=== PATIENT | male | born 1980 | race Caucasian/White ===

== ENCOUNTER 2016-12-01 22:28 | Emergency (ER) | payer OTHER ==
[2016-12-01 22:48] VITALS: RESP 18
[2016-12-01] MEDS ORDERED: RX INFO: IV CONTRAST WAS GIVEN 1 EACH MISC MISCELLANE PRN (23:24)
[2016-12-01] MEDS ORDERED: HYDROmorphone 1 MG/ML 1 ML SYRINGE IVP STA (23:24)
[2016-12-01] MEDS ORDERED: SODIUM CHLORIDE 0.9% 1,000 ML IV STA (23:24)
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
[2016-12-02 00:36] LABS: Basophils % (A) 0 %; CH 33.1; CHCM 34.2; Eosinophils # (A) 0.2 k/uL (0-0.7); Eosinophils % (A) 2 %; HCT 43.8 % (39.0-53.0); HDW 2.07; HGB 15.7 gm/dL (13.0-17.5); Luc # (Auto) 0.14; Luc % (Auto) 1; Lymphocytes # (A) 3.3 k/uL (1.0-4.8); Lymphocytes % (A) 28 %; MCH 34.9 pg (25.0-35.0); MCHC 35.9 g/dL (31.0-37.0); MCV 97.1 fL (80.0-100.0); Mean Platelet Volume 8.5; Monocytes # (A) 0.5 k/uL (0-1.0); Monocytes % (A) 5 %; Neutrophils # (A) 7.3 k/uL (1.3-7.7); Neutrophils % (A) 64 %; RBC 4.51 m/uL (4.30-5.90); RDW 12.9 % (11.5-15.5); WBC 11.5 k/uL (3.8-10.6); WBC (Perox) 12.03
[2016-12-02 00:47] LABS: ALT 41 U/L (21-72); AST 45 U/L (17-59); Alkaline Phosphatase 81 U/L (38-126); Anion Gap 11 mmol/L; Blood Urea Nitrogen 18 mg/dL (9-20); Calcium 9.5 mg/dL (8.4-10.2); Carbon Dioxide 26 mmol/L (22-30); Chloride 102 mmol/L (98-107); Glucose 140 mg/dL (74-99); Non-African American GFR(MDRD) >60 (>60 ml/min/1.73 sqM); Potassium 4.1 mmol/L (3.5-5.1); Sodium 139 mmol/L (137-145); Total Bilirubin 0.7 mg/dL (0.2-1.3)
[2016-12-02 01:15] LABS: Appearance,Urine Clear (Clear); Bilirubin,Urine Negative (Negative); Glucose,Urine (UA) Negative (Negative); Ketones,Urine 2+ (Negative); Leukocyte Esterase,Urine Negative (Negative); Mucus,Urine Occasional /hpf; Nitrite,Urine Negative (Negative); PH, Urine 5.5 (5.0-8.0); Particle Count 2853; Protein,Urine Trace (Negative); RBC,Urine 2 /hpf (0-5); Squamous Epithelial Cell,Urine <1 /hpf (0-4); UA Billing (MACRO vs. MICRO) MICRO; WBC,Urine 1 /hpf (0-5)
[2016-12-02 01:16] LABS: Specific Gravity,Urine >1.050 (1.001-1.035)
--- NOTE | 2016-12-02 01:34 | CT ---
EXAM: CT Head Without Intravenous Contrast CLINICAL HISTORY: Reason: Pain TECHNIQUE: Axial computed tomography images of the head/brain without intravenous contrast. CTDI is 57.40 mGy and DLP is 928.70 mGy-cm. This CT exam was performed using one or more of the following dose reduction techniques: automated exposure control, adjustment of the mA and/or kV according to patient size, and/or use of iterative reconstruction technique. COMPARISON: No relevant prior studies available. FINDINGS: Limitations: Note that the superiormost aspect of the vertex is excluded from the [id number]. Brain: Unremarkable. No hemorrhage. No significant white matter disease. No edema. Ventricles: Unremarkable. No ventriculomegaly. Bones/joints: Unremarkable. No acute fracture. Sinuses: Unremarkable as visualized. No acute sinusitis. Mastoid air cells: Unremarkable. No mastoid effusion. Orbits: Postsurgical changes noted involving the left globe. IMPRESSION: No acute intracranial abnormality is seen. EXAM: CT Cervical Spine Without Intravenous Contrast CLINICAL HISTORY: Reason: Pain TECHNIQUE: Axial computed tomography images of the cervical spine without intravenous contrast. CTDI is 14.10 mGy and DLP is 283.50 mGy-cm. This CT exam was performed using one or more of the following dose reduction techniques: automated exposure control, adjustment of the mA and/or kV according to patient size, and/or use of iterative reconstruction technique. COMPARISON: No relevant prior studies available. FINDINGS: Vertebrae: Vertebral body heights and alignment are maintained without acute fracture. There are mild degenerative changes, including prominent anterior osteophyte formation at C5-6, mild reduction of the foraminal volumes at C3-4 and C5-6 along with slight reduction of the central canal volume from C3-4 through C5-6. There is reversal of the normal cervical lordosis. Discs/spinal canal/neural foramina: See above. Soft tissues: Unremarkable. Lung apices: Minimal linear scarring. IMPRESSION: 1. No acute osseous abnormality is seen. 2. There is nonspecific reversal of the normal cervical lordosis. 3. Clinical clearance of the cervical spine is still recommended. 4. Mild cervical spondylosis.
--- NOTE | 2016-12-02 01:43 | CT ---
EXAM: CT Chest With Intravenous Contrast CLINICAL HISTORY: Reason: Pain TECHNIQUE: Axial computed tomography images of the chest with intravenous contrast. CTDI is 5.90 mGy and DLP is 427.20 mGy-cm for combined chest/abdomen/pelvis CT. This CT exam was performed using one or more of the following dose reduction techniques: automated exposure control, adjustment of the mA and/or kV according to patient size, and/or use of iterative reconstruction technique. COMPARISON: No relevant prior studies available. FINDINGS: Lungs: Diffuse emphysematous changes, with linear scarring at the apices. No superimposed infiltrate. Pleural space: Unremarkable. No pneumothorax. No significant effusion. Heart: Unremarkable. No cardiomegaly. No significant pericardial effusion. Bones/joints: Smoothly marginated anterior chest wall deformity involving bilateral ribs which may be congenital, or due to prior surgery or remote trauma. No acute displaced fracture is seen. Soft tissues: Mild bilateral gynecomastia. Vasculature: Unremarkable. No thoracic aortic aneurysm. Lymph nodes: Unremarkable. No enlarged lymph nodes. IMPRESSION: 1. No acute intrathoracic sequela from trauma is seen. 2. Advanced emphysematous changes. EXAM: CT Abdomen and Pelvis With Intravenous Contrast CLINICAL HISTORY: Reason: Pain TECHNIQUE: Axial computed tomography images of the abdomen and pelvis with intravenous contrast. CTDI is 5.90 mGy and DLP is 427.20 mGy-cm for combined chest/abdomen/pelvis CT. This CT exam was performed using one or more of the following dose reduction techniques: automated exposure control, adjustment of the mA and/or kV according to patient size, and/or use of iterative reconstruction technique. COMPARISON: No relevant prior studies available. FINDINGS: Lower thorax: No acute findings. ABDOMEN: Liver: Geographic focal fat adjacent to the falciform ligament. Gallbladder and bile ducts: Unremarkable. No calcified stones. No ductal dilation. Pancreas: Uniform without discrete mass. While the pancreatic duct is visualized, it measures under 3 mm in diameter, within normal limits Spleen: Unremarkable. No splenomegaly. Adrenals: Unremarkable. No mass. Kidneys and ureters: Unremarkable. No solid mass. No hydronephrosis. Stomach and bowel: Unremarkable. No obstruction. Appendix: No findings to suggest acute appendicitis. PELVIS: Bladder: Unremarkable. Reproductive: Unremarkable as visualized. ABDOMEN and PELVIS: Intraperitoneal space: No free air. No significant fluid collection. Bones/joints: No acute fracture. Soft tissues: Unremarkable. Vasculature: No abdominal aortic aneurysm. Lymph nodes: No enlarged lymph nodes. IMPRESSION: No definite acute intra-abdominal or pelvic sequela from trauma is seen, as above.
[2016-12-02] MEDS ORDERED: HYDROmorphone 1 MG/ML 1 ML SYRINGE IVP STA (01:55)
[2016-12-02 02:00] VITALS: BP 123/75; PULSE 74; TEMP 97.5
== END 2016-12-02 02:00 | disposition home or self-care (01) ==
LOC: EC 22:28
DX: S39.012A Strain of muscle, fascia and tendon of lower back, initial encounter (principal); S20.211A Contusion of right front wall of thorax, initial encounter; S00.81XA Abrasion of other part of head, initial encounter; Z88.0 Allergy status to penicillin; Z88.8 Allergy status to other drugs, medicaments and biological substances; Z91.011 Allergy to milk products; Z87.891 Personal history of nicotine dependence; Y03.0XXA Assault by being hit or run over by motor vehicle, initial encounter
CPT/HCPCS: 99284; 96374; 96361 ×2; 36415; 80053; 85025; 81001; 72125; 70450; 71260; 74177; J1170; Q9967

== ENCOUNTER 2017-06-24 17:31 | Emergency (ER) | payer OTHER ==
[2017-06-24 17:41] VITALS: BP 165/85; PULSE 108; RESP 20; TEMP 98.1
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
[2017-06-24 20:29] LABS: Amphetamine Screen,Urine Not Detected (NotDetected); Barbiturate Screen,Urine Not Detected (NotDetected); Benzodiazepines Screen,Urine Not Detected (NotDetected); Cocaine Screen,Urine Not Detected (NotDetected); Methadone Screen, Urine Not Detected (NotDetected); Opiate Screen,Urine Not Detected (NotDetected); Oxycodone Screen, Urine Not Detected (NotDetected); Phencyclidine Screen,Urine Not Detected (NotDetected); Tricyclic Antidepressant,Urine Not Detected (NotDetected); Urn Cannabinoid Scrn Detected (NotDetected)
== END 2017-06-24 21:00 | disposition home or self-care (01) ==
LOC: EC 17:31
DX: R45.1 Restlessness and agitation (principal); F20.9 Schizophrenia, unspecified; Z87.891 Personal history of nicotine dependence; Z88.0 Allergy status to penicillin; Z88.8 Allergy status to other drugs, medicaments and biological substances; Z91.011 Allergy to milk products
CPT/HCPCS: 80306; 99284

== ENCOUNTER 2017-09-28 05:35 | Emergency (ER) | payer OTHER ==
[2017-09-28] MEDS ORDERED: PROPARACAINE 0.5% OPHTH DROPS 15 ML BTL ONE (06:21)
[2017-09-28] MEDS ORDERED: PROPARACAINE 0.5% OPHTH DROPS 15 ML BTL LEFT EYE STA (06:21)
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
--- NOTE | 2017-09-28 07:24 | CT ---
EXAM: CT Orbits Without Intravenous Contrast CLINICAL HISTORY: ITS.REASON CT Reason: Pain TECHNIQUE: Axial computed tomography images of the orbits without intravenous contrast. CTDI is 30.6 mGy and DLP is 336.8 mGy-cm. This CT exam was performed using one or more of the following dose reduction techniques: automated exposure control, adjustment of the mA and/or kV according to patient size, and/or use of iterative reconstruction technique. COMPARISON: Prior head CT from 12/02/16 FINDINGS: Orbits: Hyperdensity in the anterior aspect of the left globe likely postsurgical change. Otherwise the globes appear symmetric. Mild asymmetric thickening/low-density surrounding the right optic nerve, nonspecific. This may reflect asymmetric prominence of the CSF surrounding the right optic nerve versus enlargement of the optic nerve. This appears relatively unchanged compared to prior head CT of 12/02/16 and may represent chronic finding Sinuses: Mild mucosal thickening in the ethmoid sinuses, right worse than left. Sphenoid sinuses are clear. Frontal sinuses are clear. Near complete opacification of the right maxillary sinus. Minimal mucosal thickening in the left maxillary sinus. Barbara bullosa in the left. Bones/joints: No acute fracture. Soft tissues: Unremarkable. Nasopharynx: Nasal septal deviation to the left anteriorly. Other findings: Mild hypertrophy of the right inferior turbinate. IMPRESSION: Finding as described likely postsurgical change in the left globe. Asymmetry/low-density surrounding the right optic nerve as described. This appears grossly unchanged compared to prior head CT of 12/02/16 and may be clinically insignificant. Follow-up MR of the orbits for better visualization as indicated Right maxillary sinusitis [employer] 09/28/17 07:36 Verify Receipt Verified receipt with [facility] in ER for Dr. Minaya on 09/28 07:35 (-04:00)
[2017-09-28 07:44] VITALS: BP 137/77; PULSE 82; RESP 18; TEMP 98.2
== END 2017-09-28 08:43 | disposition home or self-care (01) ==
LOC: EC 05:35
DX: H11.32 Conjunctival hemorrhage, left eye (principal); S05.02XA Injury of conjunctiva and corneal abrasion without foreign body, left eye, initial encounter; Z95.1 Presence of aortocoronary bypass graft; Z87.891 Personal history of nicotine dependence; Z88.0 Allergy status to penicillin; Z88.8 Allergy status to other drugs, medicaments and biological substances; Z91.011 Allergy to milk products; W26.8XXA Contact with other sharp object(s), not elsewhere classified, initial encounter
CPT/HCPCS: 70480; 99283

== ENCOUNTER 2017-10-03 19:31 | Emergency (ER) | payer OTHER ==
[2017-10-03] MEDS ORDERED: IPRATROPIUM-ALBUTEROL 3 ML NEB INHALATION STA ×2 (20:27→21:25)
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
--- NOTE | 2017-10-03 21:12 | XR ---
EXAMINATION TYPE: XR chest 2V DATE OF EXAM: 10/03/2017 COMPARISON: 05/03/2017 HISTORY: Cough TECHNIQUE: Frontal and lateral views of the chest are obtained. FINDINGS: There is some reticular density in the periphery of the right lung with relative lucency. This could be combined pulmonary scarring and emphysema. There is no sign of a pneumothorax. There is no pleural effusion. Heart size is normal. Mediastinum is normal. There is mild pectus excavatum divya st deformity. IMPRESSION: There are probably some fibrotic changes and emphysema in the periphery of the right kristi g. No change compared to old exam. No acute lung disease.
[2017-10-03] MEDS ORDERED: DEXAMETHASONE SOD PHOSPHATE 10 MG/ML 1 ML VIAL IM STA (21:25)
[2017-10-03 21:39] VITALS: BP 136/68; RESP 18; TEMP 98.2
[2017-10-03 21:42] VITALS: PULSE 92
== END 2017-10-03 21:51 | disposition home or self-care (01) ==
LOC: EC 19:31
DX: J20.9 Acute bronchitis, unspecified (principal); Z87.891 Personal history of nicotine dependence; Z88.0 Allergy status to penicillin; Z88.8 Allergy status to other drugs, medicaments and biological substances; Z91.011 Allergy to milk products; Z95.1 Presence of aortocoronary bypass graft
CPT/HCPCS: 94640 ×2; 71046; 99283; 96372; J1100

== ENCOUNTER 2017-10-14 01:30 | Emergency (ER) | payer OTHER ==
--- NOTE | 2017-10-14 02:44 | XR ---
EXAMINATION TYPE: XR chest 2V DATE OF EXAM: 10/14/2017 COMPARISON: 10/03/2017 HISTORY: Sore throat TECHNIQUE: Frontal and lateral views of the chest are obtained. FINDINGS: Heart and mediastinum are normal. There is pulmonary hyperinflation and flattening of the diaphragm. There appears to be emphysematous changes in the right lung compared to the left. There is no pleural effusion. Bony thorax is intact. There is mild pectus excavatum chest deformity. IMPRESSION: Possible COPD. Possible right side pulmonary emphysema. No acute lung disease. No change compared to old exam.
[2017-10-14] MEDS ORDERED: AZITHROMYCIN 500 MG TAB PO STA (02:59)
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
[2017-10-14 03:18] VITALS: BP 118/62; PULSE 62; RESP 18; TEMP 97.9
== END 2017-10-14 03:18 | disposition home or self-care (01) ==
LOC: EC 01:30
DX: J44.9 Chronic obstructive pulmonary disease, unspecified (principal); Z87.891 Personal history of nicotine dependence; Z88.0 Allergy status to penicillin; Z91.011 Allergy to milk products; Z88.8 Allergy status to other drugs, medicaments and biological substances; Z95.1 Presence of aortocoronary bypass graft
CPT/HCPCS: 71046; 99283

== ENCOUNTER 2017-10-17 22:50 | Emergency (ER) | payer OTHER ==
[2017-10-17 23:06] VITALS: RESP 18; TEMP 97.9
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
[2017-10-18 00:29] LABS: Amphetamine Screen,Urine Not Detected (NotDetected); Barbiturate Screen,Urine Not Detected (NotDetected); Benzodiazepines Screen,Urine Not Detected (NotDetected); Cocaine Screen,Urine Not Detected (NotDetected); Methadone Screen, Urine Not Detected (NotDetected); Opiate Screen,Urine Not Detected (NotDetected); Oxycodone Screen, Urine Not Detected (NotDetected); Phencyclidine Screen,Urine Not Detected (NotDetected); Tricyclic Antidepressant,Urine Not Detected (NotDetected); Urn Cannabinoid Scrn Detected (NotDetected)
[2017-10-18 02:18] VITALS: BP 118/73; PULSE 70
== END 2017-10-18 02:16 | disposition home or self-care (01) ==
LOC: EC 22:50
DX: F41.9 Anxiety disorder, unspecified (principal); F60.9 Personality disorder, unspecified; F30.8 Other manic episodes; Z59.0 Homelessness; Q24.8 Other specified congenital malformations of heart; J44.9 Chronic obstructive pulmonary disease, unspecified; Z87.891 Personal history of nicotine dependence; Z88.0 Allergy status to penicillin; Z88.8 Allergy status to other drugs, medicaments and biological substances; Z91.011 Allergy to milk products; Z87.01 Personal history of pneumonia (recurrent); Z95.1 Presence of aortocoronary bypass graft
CPT/HCPCS: 80306; 82075; 99284

== ENCOUNTER 2017-10-19 17:44 | Inpatient (IN) | payer MEDICAID, OTHER ==
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
[2017-10-19 18:58] LABS: Amphetamine Screen,Urine Not Detected (NotDetected); Barbiturate Screen,Urine Not Detected (NotDetected); Benzodiazepines Screen,Urine Not Detected (NotDetected); Cocaine Screen,Urine Not Detected (NotDetected); Methadone Screen, Urine Not Detected (NotDetected); Opiate Screen,Urine Not Detected (NotDetected); Oxycodone Screen, Urine Not Detected (NotDetected); Phencyclidine Screen,Urine Not Detected (NotDetected); Tricyclic Antidepressant,Urine Not Detected (NotDetected); Urn Cannabinoid Scrn Detected (NotDetected)
[2017-10-19] MEDS ORDERED: MAGNESIUM HYDROXIDE 2,400 MG/10 ML CUP PO PRN (19:31)
[2017-10-19] MEDS ORDERED: MAG HYDROX/AL HYDROX/SIMETH 30 ML CUP PO PRN (19:31)
[2017-10-19] MEDS ORDERED: LORazepam 1 MG TAB PO PRN (19:31)
[2017-10-19] MEDS ORDERED: ZIPRASIDONE 20 MG VIAL IM PRN (19:31)
[2017-10-19] MEDS ORDERED: ACETAMINOPHEN TAB 325 MG TAB PO PRN (19:31)
[2017-10-19] MEDS ORDERED: LORazepam 2 MG/ML INJ IM PRN (19:32)
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
[2017-10-19 22:12] VITALS: BMI 17.4
[2017-10-19] MEDS: CLINDAMYCIN 150 MG CAP PO SCH (22:39)
[2017-10-20] MEDS: CLINDAMYCIN 150 MG CAP PO SCH ×3 (09:12→21:58)
[2017-10-20 09:32] LABS: Basophils % (A) 0 %; Eosinophils # (A) 0.3 k/uL (0-0.7); Eosinophils % (A) 5 %; HCT 45.4 % (39.0-53.0); HGB 15.3 gm/dL (13.0-17.5); Lymphocytes # (A) 1.8 k/uL (1.0-4.8); Lymphocytes % (A) 30 %; MCHC 33.8 g/dL (31.0-37.0); MCV 94.8 fL (80.0-100.0); Mean Platelet Volume 7.6; Monocytes # (A) 0.4 k/uL (0-1.0); Monocytes % (A) 6 %; Neutrophils # (A) 3.3 k/uL (1.3-7.7); Neutrophils % (A) 57 %; Platelet Count 226 k/uL (150-450); RBC 4.78 m/uL (4.30-5.90); RDW 12.9 % (11.5-15.5); WBC 5.9 k/uL (3.8-10.6)
[2017-10-20 09:52] LABS: ALT 40 U/L (21-72); AST 35 U/L (17-59); Alkaline Phosphatase 72 U/L (38-126); Anion Gap 12 mmol/L; Blood Urea Nitrogen 21 mg/dL (9-20); Calcium 9.7 mg/dL (8.4-10.2); Carbon Dioxide 29 mmol/L (22-30); Chloride 103 mmol/L (98-107); Glucose 137 mg/dL (74-99); Potassium 4.7 mmol/L (3.5-5.1); Sodium 144 mmol/L (137-145); Total Bilirubin 0.7 mg/dL (0.2-1.3); Total Protein 6.3 g/dL (6.3-8.2)
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
[2017-10-20] MEDS: ARIPiprazole 5 MG TAB PO SCH (10:33)
[2017-10-21 06:44] VITALS: RESP 16
[2017-10-21] MEDS: ARIPiprazole 5 MG TAB PO SCH (08:20)
[2017-10-21] MEDS: CLINDAMYCIN 150 MG CAP PO SCH ×3 (08:20→22:00)
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
[2017-10-22 07:00] VITALS: TEMP 97.9
[2017-10-22] MEDS: CLINDAMYCIN 150 MG CAP PO SCH ×3 (09:26→21:28)
[2017-10-22] MEDS: ARIPiprazole 5 MG TAB PO SCH (09:27)
--- NOTE | 2017-10-22 15:26 | P.PN ---
Progress Note - Text Progress Note Date: 10/22/17 Interval history: Patient is seen again in cross coverage today. He relates today that he did sign the notice of wanting to leave the hospital. He reports that he is eating well and sleeping well. He relates he did take the Abilify the first 2 doses but did not take the dose today. Mental status exam: He is alert and cooperative with the interview. His speech is fluent, not rapid or pressured. His mood he described as pretty good. He denies any thoughts of harm to self or others. He denies any hallucinations. He does not show any significant degree of agitation. Plan: We'll continue current treatment regimen. We'll continue to monitor his status, monitor for any medication side effects.
[2017-10-23 07:16] VITALS: BP 128/58; PULSE 86
[2017-10-23] MEDS: ARIPiprazole 5 MG TAB PO SCH (08:27)
[2017-10-23] MEDS: CLINDAMYCIN 150 MG CAP PO SCH (08:27)
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
== END 2017-10-23 12:15 | disposition left against medical advice (07) | DRG 885 ==
LOC: EC 17:44 → 3MHU 19:24
PROVIDERS: ADMIT Psychiatry & Neurology Psychiatry; ATTEND Psychiatry & Neurology Psychiatry
DX: F22 Delusional disorders (principal); F12.90 Cannabis use, unspecified, uncomplicated; F17.200 Nicotine dependence, unspecified, uncomplicated; F41.9 Anxiety disorder, unspecified; F60.9 Personality disorder, unspecified; J44.9 Chronic obstructive pulmonary disease, unspecified; L08.9 Local infection of the skin and subcutaneous tissue, unspecified; Z59.0 Homelessness; Z79.899 Other long term (current) drug therapy; Z95.1 Presence of aortocoronary bypass graft; Z88.1 Allergy status to other antibiotic agents; Z91.011 Allergy to milk products; Z88.0 Allergy status to penicillin; Z91.048 Other nonmedicinal substance allergy status; R45.850 Homicidal ideations
CPT/HCPCS: 80053; 80306; 82075; 84443; 85025; 99285

== ENCOUNTER 2017-11-17 09:43 | Emergency (ER) | payer OTHER ==
[2017-11-17 09:53] VITALS: BP 126/76; PULSE 78; RESP 20; TEMP 98.6
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
== END 2017-11-17 10:53 | disposition home or self-care (01) ==
LOC: EC 09:43
DX: S00.83XA Contusion of other part of head, initial encounter (principal); H05.222 Edema of left orbit; F17.200 Nicotine dependence, unspecified, uncomplicated; Z88.0 Allergy status to penicillin; Z91.011 Allergy to milk products; Z88.8 Allergy status to other drugs, medicaments and biological substances; Z95.1 Presence of aortocoronary bypass graft; Y09 Assault by unspecified means; Y92.009 Unspecified place in unspecified non-institutional (private) residence as the place of occurrence of the external cause
CPT/HCPCS: 99283

== ENCOUNTER 2018-07-03 13:17 | Emergency (ER) | payer OTHER ==
[2018-07-03 13:34] VITALS: BP 109/74; PULSE 105; RESP 18; TEMP 98.2
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
--- NOTE | 2018-07-03 14:51 | XR ---
EXAMINATION TYPE: XR lumbosacral spine min 4V DATE OF EXAM: 07/03/2018 CLINICAL HISTORY: Left leg numbness for 3 weeks. TECHNIQUE: Frontal, lateral, and oblique images of the lumbar spine are obtained. COMPARISON: CT from December 02, 2016 FINDINGS: There are 5 lumbar type vertebral bodies redemonstrated. The lumbar spine redemonstrates satisfactory alignment without evidence of acute fracture or dislocation. Vertebral body heights and disk space heights are within normal limits. The oblique images appear within normal limits. The o verlying soft tissue appears unremarkable. IMPRESSION: Unremarkable study.
== END 2018-07-03 15:19 | disposition home or self-care (01) ==
LOC: EC 13:17
DX: M54.16 Radiculopathy, lumbar region (principal); G56.03 Carpal tunnel syndrome, bilateral upper limbs; Q24.8 Other specified congenital malformations of heart; F17.200 Nicotine dependence, unspecified, uncomplicated; Z88.0 Allergy status to penicillin; Z88.8 Allergy status to other drugs, medicaments and biological substances; Z91.011 Allergy to milk products; Z95.1 Presence of aortocoronary bypass graft; Z98.890 Other specified postprocedural states
CPT/HCPCS: 72110; 99284

== ENCOUNTER 2020-02-10 21:16 | Emergency (ER) | payer OTHER ==
[2020-02-10 21:24] VITALS: TEMP 99.2
[2020-02-10] MEDS ORDERED: methylPREDNISolone SOD SUCCI 125 MG/2 ML VIAL IV STA (21:54)
[2020-02-10] MEDS ORDERED: SODIUM CHLORIDE 0.9% 1,000 ML IV STA (21:54)
[2020-02-10] MEDS ORDERED: IPRATROPIUM 0.5 MG/2.5 ML NEBU INHALATION STA (21:54)
[2020-02-10] MEDS ORDERED: ALBUTEROL NEB (CONC) 2.5 MG/0.5 ML INHALATION STA (21:56)
[2020-02-10] MEDS ORDERED: ALBUTEROL NEBULIZED 2.5 MG/3 ML INHALATION STA (21:56)
[2020-02-10] MEDS ORDERED: ONDANSETRON 4 MG/2 ML VIAL IVP STA (21:57)
[2020-02-10] MEDS ORDERED: MORPHINE SULFATE 4 MG/ML SYRINGE IVP STA (21:57)
[2020-02-10 22:18] LABS: Basophils % (A) 0 %; Eosinophils # (A) 0.1 k/uL (0-0.7); Eosinophils % (A) 1 %; HCT 43.5 % (39.0-53.0); HGB 14.3 gm/dL (13.0-17.5); Lymphocytes # (A) 2.8 k/uL (1.0-4.8); Lymphocytes % (A) 25 %; MCH 31.5 pg (25.0-35.0); MCV 95.3 fL (80.0-100.0); Mean Platelet Volume 9.2; Monocytes # (A) 0.7 k/uL (0-1.0); Monocytes % (A) 6 %; Neutrophils # (A) 7.4 k/uL (1.3-7.7); Neutrophils % (A) 66 %; Platelet Count 193 k/uL (150-450); RBC 4.56 m/uL (4.30-5.90); RDW 12.6 % (11.5-15.5); WBC 11.2 k/uL (3.8-10.6)
[2020-02-10 22:20] LABS: ALT 53 U/L (4-49); AST 158 U/L (17-59); African American GFR (CKD) >90 (>60 ml/min/1.73 sqM); Albumin 4.1 g/dL (3.5-5.0); Alkaline Phosphatase 74 U/L (38-126); Anion Gap 13 mmol/L; Blood Urea Nitrogen 22 mg/dL (9-20); Calcium 9.2 mg/dL (8.4-10.2); Carbon Dioxide 21 mmol/L (22-30); Chloride 101 mmol/L (98-107); Glucose 95 mg/dL (74-99); Non-African American GFR(CKD) >90 (>60 ml/min/1.73 sqM); Potassium 3.5 mmol/L (3.5-5.1); Sodium 135 mmol/L (137-145); Total Bilirubin 0.7 mg/dL (0.2-1.3); Total Protein 6.3 g/dL (6.3-8.2)
[2020-02-10 22:26] LABS: D-Dimer 0.24 mg/L FEU (<0.60); Partial Thromboplastin Time 23.9 sec (22.0-30.0); Prothrombin Time 10.5 sec (9.0-12.0)
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
--- NOTE | 2020-02-10 23:06 | XR ---
EXAMINATION TYPE: XR chest 2V DATE OF EXAM: 02/10/2020 COMPARISON: 10/14/2017 HISTORY: Inability breathing TECHNIQUE: 2 views FINDINGS: Heart and mediastinum are normal. Lungs are clear of infiltrate. There is a pectus excavatu m chest deformity. There is no pleural effusion. Thoracic spine is intact. IMPRESSION: No active cardiopulmonary disease. Normal heart. No change.
[2020-02-11 00:12] VITALS: BP 126/75; PULSE 80; RESP 18
== END 2020-02-11 00:35 | disposition home or self-care (01) ==
LOC: EC 21:16
DX: J44.1 Chronic obstructive pulmonary disease with (acute) exacerbation (principal); M79.671 Pain in right foot; M79.672 Pain in left foot; F17.200 Nicotine dependence, unspecified, uncomplicated; Z88.0 Allergy status to penicillin; Z91.011 Allergy to milk products; Z88.8 Allergy status to other drugs, medicaments and biological substances; Z95.1 Presence of aortocoronary bypass graft; Z59.0 Homelessness; Z20.828 Contact with and (suspected) exposure to other viral communicable diseases
CPT/HCPCS: 36415; 94640; 93005; 85379; 80053; 83605; 84484; 85025; 85610; 85730; 71046; 99285; 96374; 96375 ×2; 96361 ×3; U0003; J2270; J2930; J2405

== ENCOUNTER 2020-02-14 17:53 | Inpatient (IN) | payer MEDICAID, OTHER ==
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
[2020-02-14] MEDS ORDERED: LORazepam 1 MG TAB PO PRN (19:41)
[2020-02-14] MEDS ORDERED: MAG HYDROX/AL HYDROX/SIMETH 30 ML CUP PO PRN (19:41)
[2020-02-14] MEDS ORDERED: ZIPRASIDONE 20 MG VIAL IM PRN (19:41)
[2020-02-14] MEDS ORDERED: MAGNESIUM HYDROXIDE 2,400 MG/10 ML CUP PO PRN (19:41)
[2020-02-14] MEDS ORDERED: hydrOXYzine pamoate 25 MG CAP PO PRN (19:46)
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
[2020-02-15] MEDS: NICOTINE 14MG/24HR PATCH TRANSDERM SCH (09:52)
[2020-02-15] MEDS ORDERED: OLANZapine 10 MG VIAL IM PRN (11:05)
--- NOTE | 2020-02-15 11:38 | P.HP ---
Psychiatric H&P - . H&P Date: 02/15/20 History & Physical: Allergies Allergy/AdvReac Type Severity Reaction Status Date / Time amoxicillin Allergy Unknown Verified 02/14/20 18:57 atropine Allergy Unknown Verified 02/14/20 18:57 clonidine Allergy Unknown Verified 02/14/20 18:57 lorazepam From Ativan Allergy Unknown Verified 02/14/20 18:57 milk Allergy Unknown Verified 02/14/20 18:57 Penicillins Allergy Unknown Verified 02/14/20 18:57 Vital Signs Temp 99.1 F 02/14/20 20:06 Pulse 93 02/14/20 20:06 Resp 16 02/14/20 20:06 BP 137/76 02/14/20 19:13 Pulse Ox 100 02/14/20 20:06 Intake & Output 02/14/20 02/15/20 02/15/20 18:59 06:59 18:59 Weight 79.379 kg 75.841 kg 02/15/20 11:09 IDENTIFYING DATA: Patient is a 39-year-old male who is currently homeless for the past 5 years. HPI: Patient presented to the hospital yesterday and was complaining of anxiety in the ER. Patient apparently stated that his ex-girlfriend has been ruining his life and has also been stalking him. Patient was acting bizarre and fairly paranoid and was able to sign voluntary for admission to the mental unit. Patient was seen today sleeping in the lounge and was directable and agreeable to speak to chief writer in the office. Patient was initially cooperative however was fairly suspicious and paranoid throughout the entire interview. Patient questioned chief writer several times about why he was asking questions. He stated repeatedly throughout the interview that "I'm not a harm to myself or others and I need to be released from the hospital". He also maintained that he signed the AMA form as soon as he came up onto the unit and again was focused with discharge and also not taking medications. He claims that he does not need medications and does not have a psychiatric illness. Patient has poor insight and judgment. Patient spoke about his ex-girlfriend who has been stalking him and using people to "play games with". He states that he is contacted the police several times and claims that his ex-girlfriend has been using other people to "make me look bad". Whenever patient was asked to elaborate more on what she has done patient got irritable and guarded/evasive. Patient also commented on chief writer and states that "I don't like your condescending attitude". He mentions that in the hospital "you guys are doing bad things to people here". He denied any depression and denies any anxiety at this time. He denied any recreational drug use except for occasionally using marijuana. He did not give a UDS or any blood work. Patient denies any suicidal or homicidal ideations intent or plan. At this time patient denies any auditory or visual hallucinations. PAST PSYCHIATRIC HISTORY: Patient states that he did not have a mental illness however was diagnosed with delusional disorder in the last admission which was in October 2017. Patient denies being on any psychiatric medications. Patient denies any psychiatric outpatient follow-up. Patient denies any history of suicide attempts in the past. PMH: COPD ALLERGIES: as per EMR CHEMICAL DEPENDENCY HISTORY: as per HPI FAMILY PSYCHIATRIC/SUBSTANCE USE HISTORY: denies SOCIAL HISTORY: When asked about social history patient was guarded and paranoid and declined to answer and left the room.. MENTAL STATUS EXAM: General Appearance: Patient appears to be older than stated age is alert, guarded/evasive and argumentative/suspicious with chief writer.. Patient appears to have poor hygiene and grooming. Behavior: Patient is seated without any agitated behavior. Guarded and paranoid. Speech: Patient's speech is fluent and nonpressured. Mood/Affect: Patient reports their mood is "okay ", affect is congruent and constricted. Suicidality/Homicidality: Patient denies having any homicidal ideation intent or plan. Denies any suicidal ideations intent or plan Perceptions: Patient denies any visual hallucinations and denies any auditory hallucinations Though content/process: Preoccupied with discharge, minimizing his symptoms. Poor insight and judgment. Significant paranoia and delusions. Memory and concentration: Unable to assess. Judgment and insight: poor/impulsive STRENGTHS/WEAKNESSES: strength is that patient is resilient. Weakness is that patient has poor judgment and is impulsive INTELLECT: average IMPRESSIONS: Psychosis unspecified, rule out delusional disorder versus substance-induced psychotic disorder Cannabis use disorder Nicotine dependence PLAN: -Patient is admitted under voluntary status to MHU for stabilization of psychiatric symptoms and safety. Patient refused to sign medication consent form today and signed AMA form. -Medications : Will start patient on Haldol 2.5 mg twice a day for psychosis. Vistaril when necessary for anxiety. -Zyprexa PRN for agitation/aggression -Patient was informed of the risks, benefits and side effects of the medication and patient verbally consented to taking the medications. Patient signed med consent form and was placed in chart. -Internal Medicine consult to perform medical evaluation and physical. -NRT - nicotine patch -SW on board for discharge planning. Encourage patient to participate in groups to work on coping skills. We'll see if patient is amenable to take his medications and will continue to reevaluate if we need to file for involuntary process through the courts. 02/15/20 11:31 02/15/20 11:38
[2020-02-15] MEDS: haloperidoL 5 MG TAB PO SCH ×2 (11:55→21:46)
[2020-02-16] MEDS: haloperidoL 5 MG TAB PO SCH ×2 (09:34→21:17)
[2020-02-16] MEDS: NICOTINE 14MG/24HR PATCH TRANSDERM SCH (09:34)
--- NOTE | 2020-02-16 09:57 | P.PN ---
Progress Note - Text Progress Note Date: 02/16/20 Interval history: Patient was seen wandering the hallways and was directable and agreeable to s peak with copy writer. Patient continues to be suspicious/paranoid and persistent on being released from the hospital. He continues to state that "I am not a harm to myself and/or others". According to overnight report patient has been placing a cup in his room to monitor when people open his door. When asked if he feels paranoid or threatened by the staff patient states that "I don't have to tell you that I know my rights". Patient continues to be fairly defensive and argumentative with copy writer and denies any complaints. Patient states repeatedly that he signed AMA. At this time patient denies any suicidal or homicidal ideations intent or plan. Denies any Auditory or visual hallucinations. Patient has not been taking his medications. Mental status exam: General Appearance: Patient appears to be older than stated age is alert, guarded/evasive and argumentative/suspicious with copy writer. Patient appears to have poor hygiene and grooming. Behavior: Patient is seated without any agitated behavior. Guarded and paranoid. Speech: Patient's speech is fluent and nonpressured. Mood/Affect: Patient reports their mood is "ok ", affect is incongruent and constricted. Suicidality/Homicidality: Patient denies having any homicidal ideation intent or plan. Denies any suicidal ideations intent or plan Perceptions: Patient denies any visual hallucinations and denies any auditory hallucinations Though content/process: Preoccupied with discharge, minimizing his symptoms. Poor insight and judgment. Significant paranoia and delusions. Memory and concentration: Unable to assess. Judgment and insight: poor/impulsive Assessment/Plan: -Patient is admitted under voluntary status to MHU for stabilization of psychiatric symptoms and safety. Patient refused to sign medication consent form and signed AMA form on night of admission. -Medications : Will continue with Haldol 2.5 mg twice a day for psychosis. Vistaril when necessary for anxiety. -Zyprexa PRN for agitation/aggression -Patient was informed of the risks, benefits and side effects of the medication and patient verbally consented to taking the medications. Patient signed med consent form and was placed in chart. -Internal Medicine consult to perform medical evaluation and physical. -NRT - nicotine patch -SW on board for discharge planning. Encourage patient to participate in groups to work on coping skills. We'll likely need to file for involuntary process through the courts tomorrow.
[2020-02-16 22:01] LABS: Amorphous Sediment,Urine Rare /hpf; Appearance,Urine Turbid (Clear); Bilirubin,Urine Negative (Negative); Blood,Urine Negative (Negative); Color,Urine Yellow; Glucose,Urine (UA) Negative (Negative); Ketones,Urine Negative (Negative); Leukocyte Esterase,Urine Negative (Negative); Mucus,Urine Rare /hpf; Nitrite,Urine Negative (Negative); Protein,Urine Negative (Negative); RBC,Urine 3 /hpf (0-5); Specific Gravity,Urine 1.023 (1.001-1.035); Urobilinogen,Urine <2.0 mg/dL (<2.0); WBC,Urine <1 /hpf (0-5)
[2020-02-17] MEDS: haloperidoL 5 MG TAB PO SCH ×2 (10:36→20:18)
[2020-02-17] MEDS: NICOTINE 14MG/24HR PATCH TRANSDERM SCH (10:36)
[2020-02-17 11:52] LABS: Urine Alcohol Negative (Negative); Urine Barbiturate Negative (Negative); Urine Cocaine Negative (Negative); Urine Methadone Negative (Negative); Urine Opiates Negative (Negative); Urine Phencyclidine Negative (Negative)
--- NOTE | 2020-02-17 12:14 | P.PN ---
Subjective Progress Note Date: 02/17/20 Principal diagnosis: Bipolar 1 manic The patient came up to me in the [place] have never met me concluded that I must be Dr. Cade, then launched on a tirade on how he should be discharged because "I signed myself and I signed myself out I'm of sound mind and body and no reason to be here and I've important things to do. Objective patient has pressured speech talking into the middle of my sentences. He is somewhat paranoid refusing to answer simple questions about his history. He was willing to go through a mental status exam and is oriented to person place and time but not to his need for help. He seems unable to understand that simply saying he's okay is not the same as helping reestablished that fact. When I explained to him that that was irrational he just jumped to the conclusion that I had already jumped to the conclusion and that it didn't matter what he said that we were going to keep him and we should all watch out because he was going to gideon the lot of us he talks much louder than the situation calls for. He is refusing medication he says he doesn't even take supplements. He is somewhat grandiose plans starting a program to help needy struggling people because the missions are failing in their mission. When given 3 things to remember he remembered to pieces but scrambled them up. He did name the presidents back to older Hall, he can spell world backward when asked how cats and snakes are alike he is way too many words but basically said they yanez prey. He could subtract 7 from 93. Eye contact is good he's hyper in his pacing and he leans forward somewhat intimidatingly. He jumped to the conclusion that I was not going to let him out, not because he wasn't doing fine, but because we were colluding with one another in the hospital. He was able to sleep 5 hours last night he has been going to groups where he is bright and talkative but wanders in and out being somewhat disruptive. He talked to staff about a stalker that has been doing things to him outside of the hospital. He is very guarded and I think that his paranoid delusions are much worse than he is willing to let on. Assessment: The patient is coming across slight severe panchito and is in no condition to make rational decisions about his own safety or welfare is a n egative assessment of where everyone is coming from plus way too much energy I think would endanger himself and his welfare and welfare of others if he were not in the hospital. Objective - Vital Signs Vital signs: Vital Signs Temp 98.9 F 02/16/20 05:37 Pulse 95 02/16/20 19:37 Resp 18 02/16/20 19:37 BP 119/62 02/16/20 19:37 Pulse Ox 100 02/16/20 19:37 Intake & Output 02/16/20 02/17/20 02/17/20 18:59 06:59 18:59 Weight 75.4 kg - Labs Labs: Abnormal Lab Results - Last 24 Hours (Table) 02/16/20 02/16/20 Range/Units 21:15 21:15 Amorphous Sediment Rare H (None) /hpf Urine Mucus Rare H (None) /hpf U Cannabinoids Screen Positive H (Negative) ng/mL
[2020-02-17] MEDS: ACETAMINOPHEN TAB 325 MG TAB PO PRN (20:17)
--- NOTE | 2020-02-18 08:50 | P.PN ---
Subjective Progress Note Date: 02/18/20 Principal diagnosis: Bipolar 1 manic Subjective: There is nothing wrong with me, I demanded a asset availability leader immediately, you people just twist everything, is not paranoid to believe your ex-girlfriend is stalking you, there is nothing wrong with my thinking are you in my head? Who do you think you are? 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 Objective: Pressured speech flight of ideas talking into the middle of my symptoms when I tried to outline the situation and what needs to happen he attacked my professionalism and claims he has a mind and memory like a steel trap. The patient had a great deal difficulty falling asleep due to racing thoughts Groups the patient did not participate in the group because he was so fixated on being discharged and that he had signed an AMA and we were overriding his constitutional rights. And typical example of how he twist everything was he filled out a form on anger management but then justified excess anger if someone is purposely provoking you. Of course he could believe that he was eating purposely provoked when nothing was happening due to his negative interpretation of everything. He came late and left early because all he wanted talk about was his preoccupations Staff assessment: Is confrontational going on and on about how his women who have treated him terrible have to make him look bad to cover their own guilt. ADLs are minimal he's agitated attention seeking constantly complaining suspicious flight of ideas guarded feels like people are talking about him that he is being persecuted. Patient is intelligent has a great vocabulary and he thinks that that means his thinking is accurate. However if he can't stick with the topic. For example I tried to help him work through a discharge plan and he started well. Saying that he needs to go see a consistent counselor but then his mind wandered back to his preoccupations and he could not finish a plan. Assessment plan the patient is refusing medications and tells the story where he was on Risperdal Consta in the past and fell out of a tree he was trying to trim. However he isn't having severe racing manic state with negative interpretation of everything and I think he needs the medication if he is going to be a function safely Objective - Vital Signs Vital signs: Vital Signs Temp 97.8 F 02/18/20 06:47 Pulse 75 02/18/20 06:47 Resp 16 02/18/20 06:47 BP 107/66 02/18/20 06:47 Pulse Ox 99 02/18/20 06:47 - Labs Labs: Abnormal Lab Results - Last 24 Hours (Table) 02/16/20 Range/Units 21:15 U Cannabinoids Screen Positive H (Negative) ng/mL
[2020-02-18] MEDS: NICOTINE 14MG/24HR PATCH TRANSDERM SCH (09:41)
[2020-02-18] MEDS: haloperidoL 5 MG TAB PO SCH ×2 (09:42→21:18)
[2020-02-18] MEDS: ACETAMINOPHEN TAB 325 MG TAB PO PRN ×3 (09:43→21:16)
[2020-02-19] MEDS: NICOTINE 14MG/24HR PATCH TRANSDERM SCH (10:19)
[2020-02-19] MEDS: haloperidoL 5 MG TAB PO SCH ×3 (10:19→21:16)
--- NOTE | 2020-02-19 13:59 | P.PN ---
Subjective Progress Note Date: 02/19/20 Principal diagnosis: Bipolar 1 manic Subjective: "What is here name how do spell your first name I need to know you're name. He never listen he just make up your mind even before you see me. Deidra talk to me for 20 minutes and then decided.(I spent an hour with) yes I think fast what's wrong with that you people just think slow you have the problem. I will stipulate if that means you have to let me out and I don't take medicines and I just go to counseling were want to. I looked up all the side effects of Haldol that stuff is terrible. Objective the patient is pressured the only way I could get a word in edgewise was to talk over his talking and then after minute or 2 of us both talking he would stop and maybe listen for second but only in order to start talking again to counter whenever I did set. Even if I was just trying to gain an understanding of what he was trying to say he would accuse me of not listening. He would jump from one idea to another. He is highly intelligent but that does not due many good because of the racing mind. Groups: The patient has been attending is irritable requires constant verbal prompting to participate attention seeking thought processes are circumstantial and rambling he is intrusive with others restless he does take care of his hygiene is hard to redirect because he does not listen and he wanders in and out of groups Staff assessment he denies any suicidality or homicidality or psychotic symptoms he only sleeps for 4 less hours a night j. The patient says that he came in here and lied to get in because he was homeless and needed place to stay and he in the lady in the emergency room agreed to lie about his suicidality to get him upstairs where he immediately said I signed myself in so I can sign myself out Assessment plan the patient came close to working with me in saying there was one medicine that he liked and would be willing to take. Of course that was Klonopin. When I told him I couldn't find a much better medicines and Haldol but Klonopin was not an option he shot back down and wouldn't work with me. When I point out that he is doing all the things he accuses others such as jumping to conclusions and not listening he does not listen or agree that there is anything about his approach to needs to change. He says that he has been homeless animation is arriving he can do it again he doesn't need treatment Assessment the patient is severely manic with grandiosity pressured speech fli ght of ideas rule out judgment accusing and threatening lawsuits thinking that we'll get him out. So he will not take medicines until we go to court and given medicine he will calm down rapidly be discharged able and then stop his medicine and around the cycle will go. However he remains a danger to himself due to the severe panchito his judgment is highly impaired he will irritate others spend money and do things impulsively as he is totally lost his ability to be cautious.. Objective - Vital Signs Vital signs: Vital Signs Temp 98.0 F 02/18/20 16:31 Pulse 75 02/18/20 06:47 Resp 16 02/18/20 06:47 BP 107/66 02/18/20 06:47 Pulse Ox 99 02/18/20 06:47
[2020-02-19] MEDS: ACETAMINOPHEN TAB 325 MG TAB PO PRN (21:14)
[2020-02-20 07:17] VITALS: RESP 16
[2020-02-20] MEDS: haloperidoL 5 MG TAB PO SCH (09:20)
[2020-02-20] MEDS: NICOTINE 14MG/24HR PATCH TRANSDERM SCH (09:20)
[2020-02-20] MEDS: ACETAMINOPHEN TAB 325 MG TAB PO PRN ×2 (16:36→21:13)
[2020-02-20] MEDS ORDERED: haloperidoL 5 MG TAB PO SCH (21:00)
[2020-02-21 06:33] VITALS: BP 126/81; PULSE 100; TEMP 97.9
--- NOTE | 2020-02-21 08:43 | P.PN ---
Subjective Progress Note Date: 02/20/20 Principal diagnosis: Bipolar 1 manic Subjective: Nothing is changed patient circles aimlessly on he is perfect and should not be here. He has been taking his Haldol wanted to complain about but did not want to talk to me about alternative. ( However he signed his deferment and has been taking his medication so soon as he begins to slow down a little we can discharge him) Objective patient takes 5 mg of Haldol day doesn't seem to be slowing him much. Groups rather than participating in the group he goes and complains constantly about his life racebook writer being violated he was however inconsistently redirectable mumbling under his breath throughout the group. But seems a little less agitated than in the past Staff assessment patient did have difficulty following asleep going slept for about 4 hours. He is agitated intrusive constantly complaining but takes care of his hygiene is oriented denies everything which is part of his illness Mental status exam: Patient remains pressured of speech but of ideas totally lacking in any insight but he is taking his medication constantly accusing negatively what he believes other people's intention and motivations are but instantly defends if you suggest he should look at himself. The patient was interfering with another patient's treatment telling them not to take the medicine but he did comply when he was told he needed to back off and not interact with the patient. Vital signs temperature 97.9 heart rate is 100 probably from his agitation respirations 16 blood pressure 126/81 oxygenation is fine at 99 Labs nothing new Assessment patient is bipolar manic and totally denies he has taken medicine will provide calm down enough to be safe for discharge by Monday at which point she will probably stop all of his medications and relapse. I warned the patient that every time he does that he damages his brain and his illness will get worse but that the average person required 9 relapses before they decide that they need to deal with her illness and I recommend he notice that when he predicts he'll do well he does not and that he might want to decrease of 9 relapses down to just a few. I'm going to increase his Haldol to 10 mg at night, I would rather use a different medication but he will not work with me to discuss any changes at least he has been taking that. Objective - Vital Signs Vital signs: Vital Signs Temp 97.9 F 02/21/20 06:33 Pulse 100 09/11/20 06:33 Resp 16 02/21/20 06:33 BP 126/81 02/21/20 06:33 Pulse Ox 99 02/21/20 06:33
[2020-02-21] MEDS: NICOTINE 14MG/24HR PATCH TRANSDERM SCH (09:01)
[2020-02-21] MEDS: ACETAMINOPHEN TAB 325 MG TAB PO PRN (09:02)
--- NOTE | 2020-02-21 09:29 | P.PN ---
Subjective Progress Note Date: 02/20/20 Principal diagnosis: Bipolar 1 manic Subjective: The patient circles endlessly about wanting to talk about discharge plans supports everything will be fine all be okay and perfect I don't need to be here Objective: Vital signs temperature 97.7 heart rate 87 respirations 16 blood pressure 104/71 Labs nothing new Groups: Patient comes to groups just to interrupt and be intrusive he was quite upset that he wasn't able to hang out with his girlfriend friend and try to talk her out of cooperating with her treatment. Staff assessment the patient is redirectable intrusive irritable pressured speech Assessment patient is taking his medicines and go move it all to the evening so he is more likely to remember the nuclear side effects I tried to talk him out of Haldol go on something else he cannot stay on any topic other than I'm perfectly out a year I don't need medicine. Plan is to increase the Haldol and move at the evening and maybe be able discharge him by Monday and is still going too fast to be safe for himself and others. Objective - Vital Signs Vital signs: Vital Signs Temp 97.9 F 02/21/20 06:33 Pulse 100 02/21/20 06:33 Resp 16 02/21/20 06:33 BP 126/81 02/21/20 06:33 Pulse Ox 99 02/21/20 06:33
--- NOTE | 2020-02-21 11:17 | P.DS ---
Providers Date of admission: 02/14/20 19:36 Expected date of discharge: 02/21/20 Attending physician: Sheela Cade MD Consults: 02/14/20 19:41 Consult Physician Routine Consulting Provider: Pedro Johnson Consult Reason/Comments: medical management Do you want consulting provider notified?: Yes Primary care physician: Stated None Hospital Course: HPI patient was admitted to the psychiatric unit on 02/13 being discharged on 02/20 He came in due to severe manic episode went to groups but didn't really benefit from them because he just went round around on how he no longer wanted to be here and that he had manipulated his way coming in so he should've them manipulate his way and go out. However he did take the Haldol at 2.5 twice a day and we have not had any rage attacks or threats to himself or others for some time. Staff assessment of the time of discharge is based on long-term experience with this individual that he has returned to his baseline he continues to complain in his intrusive but he is oriented denies hallucinations delusions suicidal or homicidal thoughts he is able take care of his ADLs. Mental status exam he still has some flight of ideas or grandiosity and racing thoughts that he is oriented to person place time and circumstance he is redirectable he still paces but his boundaries are somewhat better and he has a good discharge plan does not seem to be responding to voices denies suicidality or homicidality. Discharge plan: Discharged patient to himself. 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 He says that he is adept at managing his homelessness that he has found this a place to And that he is good at doing well even in cold weather. We will connect him up to the [facility]. I given him a month's supply of medication in a prescription for Haldol 10 mg daily at bedtime. He has not had any EPS constipation dizziness or anticholinergic side effects there is no signs of tardive dyskinesia. He says he has a place he can go to get it filled. Assessment: The patient is still moderately manic but definitely slowed down on the Haldol which she has been taking any did sign a deferral and he was willing to fill out a reasonable discharge plan. So since he does not want to be here and he is doing better I do think that we need to discharge and that he will not be a danger to self and others as long as he keeps taking his medication Health Concerns: No acute medical problems Pertinent Studies: He had vital signs run and they were fine temperature 97.9 heart rates up somewhat today at 100 respirations 16 blood pressure 126/81 pO2 is 99 Labs not run since the sixth and they were fine. His toxicology is positive for marijuana which she will try to go back to Procedures: None Patient Condition at Discharge: Fair Plan - Discharge Summary New Discharge Prescriptions: New haloperidoL [Haldol] 10 mg PO HS 30 Days #60 tab Discharge Medication List haloperidoL [Haldol] 10 mg PO HS 30 Days #60 tab 02/21/20 [Rx] Follow up Appointment(s)/Referral(s): None,Stated [Primary Care Provider] - 1-2 days Patient Instructions/Handouts: Generalized Anxiety Disorder (ED)
[2020-02-21 13:25] VITALS: BMI 21.3
[2020-02-21] MEDS ORDERED: haloperidoL 5 MG TAB PO SCH (21:00)
== END 2020-02-21 12:44 | disposition home or self-care (01) | DRG 885 ==
LOC: EC 17:53 → 3MHU 19:36
PROVIDERS: ADMIT Psychiatry & Neurology Psychiatry; ATTEND Psychiatry & Neurology Psychiatry
DX: F31.2 Bipolar disorder, current episode manic severe with psychotic features (principal); Z91.14 Patient's other noncompliance with medication regimen; J44.9 Chronic obstructive pulmonary disease, unspecified; F17.200 Nicotine dependence, unspecified, uncomplicated; M51.36 Other intervertebral disc degeneration, lumbar region; F41.9 Anxiety disorder, unspecified; R45.87 Impulsiveness; F12.10 Cannabis abuse, uncomplicated; Z71.3 Dietary counseling and surveillance; Z59.0 Homelessness; Z87.01 Personal history of pneumonia (recurrent); Z95.1 Presence of aortocoronary bypass graft; Z98.890 Other specified postprocedural states; Z87.81 Personal history of (healed) traumatic fracture; Z88.0 Allergy status to penicillin; Z88.8 Allergy status to other drugs, medicaments and biological substances; Z91.011 Allergy to milk products; Z80.52 Family history of malignant neoplasm of bladder
CPT/HCPCS: 80306; 81001; 99284

== ENCOUNTER 2020-03-07 01:32 | Emergency (ER) | payer OTHER ==
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
[2020-03-07] MEDS ORDERED: IPRATROPIUM-ALBUTEROL 3 ML NEB INHALATION STA (02:18)
[2020-03-07 02:38] LABS: Basophils % (A) 0 %; Eosinophils # (A) 0.1 k/uL (0-0.7); Eosinophils % (A) 1 %; HCT 45.2 % (39.0-53.0); HGB 15.2 gm/dL (13.0-17.5); Lymphocytes # (A) 1.9 k/uL (1.0-4.8); Lymphocytes % (A) 13 %; MCH 32.8 pg (25.0-35.0); MCHC 33.6 g/dL (31.0-37.0); MCV 97.4 fL (80.0-100.0); Mean Platelet Volume 8.2; Monocytes # (A) 0.7 k/uL (0-1.0); Monocytes % (A) 5 %; Neutrophils # (A) 11.8 k/uL (1.3-7.7); Neutrophils % (A) 81 %; Platelet Count 220 k/uL (150-450); RBC 4.64 m/uL (4.30-5.90); RDW 13.2 % (11.5-15.5); WBC 14.6 k/uL (3.8-10.6)
[2020-03-07 02:46] LABS: African American GFR (CKD) >90 (>60 ml/min/1.73 sqM); Anion Gap 5 mmol/L; Blood Urea Nitrogen 17 mg/dL (9-20); Calcium 9.1 mg/dL (8.4-10.2); Carbon Dioxide 32 mmol/L (22-30); Chloride 100 mmol/L (98-107); Glucose 123 mg/dL (74-99); Non-African American GFR(CKD) >90 (>60 ml/min/1.73 sqM); Potassium 4.6 mmol/L (3.5-5.1); Sodium 137 mmol/L (137-145)
--- NOTE | 2020-03-07 02:46 | XR ---
EXAMINATION TYPE: XR chest 2V DATE OF EXAM: 03/07/2020 COMPARISON: 02/10/2020 HISTORY: Chest pain TECHNIQUE: FINDINGS: Heart is normal. Lungs are clear of consolidation. There is mild pectus excavatum chest def ormity. There are no hilar masses. Pulmonary vascularity is normal. Diaphragm is normal. There are ch est leads. IMPRESSION: Normal chest. No change.
[2020-03-07 04:03] VITALS: PULSE 66; RESP 18
[2020-03-07 04:28] VITALS: BP 124/74; TEMP 97.8
== END 2020-03-07 04:30 | disposition home or self-care (01) ==
LOC: EC 01:32
DX: J44.1 Chronic obstructive pulmonary disease with (acute) exacerbation (principal); R07.89 Other chest pain; F17.200 Nicotine dependence, unspecified, uncomplicated; Z88.0 Allergy status to penicillin; Z91.011 Allergy to milk products; Z88.8 Allergy status to other drugs, medicaments and biological substances; Z95.1 Presence of aortocoronary bypass graft
CPT/HCPCS: 36415; 71046; 80048; 80306; 81001; 82075; 84484; 85025; 85379; 93005; 94640; 99284; 99285

== ENCOUNTER 2020-03-07 13:51 | Emergency (ER) | payer OTHER ==
[2020-03-07 14:14] VITALS: BP 128/73; PULSE 88; RESP 18; TEMP 98
[2020-03-07 16:50] LABS: Amorphous Sediment,Urine Occasional /hpf; Appearance,Urine Turbid (Clear); Bilirubin,Urine Negative (Negative); Blood,Urine Negative (Negative); Color,Urine Yellow; Glucose,Urine (UA) Trace (Negative); Ketones,Urine Negative (Negative); Leukocyte Esterase,Urine Negative (Negative); Mucus,Urine Rare /hpf; Nitrite,Urine Negative (Negative); PH, Urine 7.5 (5.0-8.0); Protein,Urine Negative (Negative); RBC,Urine 3 /hpf (0-5); Specific Gravity,Urine 1.017 (1.001-1.035); Urobilinogen,Urine <2.0 mg/dL (<2.0)
[2020-03-07 16:59] LABS: Amphetamine Screen,Urine Not Detected (NotDetected); Barbiturate Screen,Urine Not Detected (NotDetected); Benzodiazepines Screen,Urine Not Detected (NotDetected); Cocaine Screen,Urine Not Detected (NotDetected); Methadone Screen, Urine Not Detected (NotDetected); Opiate Screen,Urine Not Detected (NotDetected); Oxycodone Screen, Urine Not Detected (NotDetected); Phencyclidine Screen,Urine Not Detected (NotDetected); Tricyclic Antidepressant,Urine Not Detected (NotDetected); Urn Cannabinoid Scrn Detected (NotDetected)
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
== END 2020-03-07 17:39 | disposition home or self-care (01) ==
LOC: EC 13:51
DX: R45.4 Irritability and anger (principal); F17.200 Nicotine dependence, unspecified, uncomplicated; Z88.0 Allergy status to penicillin; Z91.011 Allergy to milk products; Z88.8 Allergy status to other drugs, medicaments and biological substances
CPT/HCPCS: 80306; 81001; 82075; 99284

== ENCOUNTER 2021-01-17 18:08 | Observation (INO) | payer OTHER ==
[2021-01-17 18:11] VITALS: TEMP 98
[2021-01-17] MEDS ORDERED: SODIUM CHLORIDE 0.9% 1,000 ML IV STA ×2 (18:22→19:38)
[2021-01-17] MEDS ORDERED: methylPREDNISolone SOD SUCCI 125 MG/2 ML VIAL IV STA (18:22)
[2021-01-17] MEDS ORDERED: ALBUTEROL NEBULIZED 2.5 MG/3 ML INHALATION STA (18:22)
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
[2021-01-17 19:00] LABS: Basophils # (A) 0.1 k/uL (0-0.2); Basophils % (A) 1 %; Eosinophils # (A) 0.2 k/uL (0-0.7); Eosinophils % (A) 1 %; HCT 49.6 % (39.0-53.0); HGB 16.8 gm/dL (13.0-17.5); Lymphocytes # (A) 2.8 k/uL (1.0-4.8); Lymphocytes % (A) 17 %; MCH 33.5 pg (25.0-35.0); MCV 98.8 fL (80.0-100.0); Mean Platelet Volume 8.8; Monocytes # (A) 0.9 k/uL (0-1.0); Monocytes % (A) 5 %; Neutrophils # (A) 12.4 k/uL (1.3-7.7); Neutrophils % (A) 76 %; Platelet Count 230 k/uL (150-450); RBC 5.02 m/uL (4.30-5.90); RDW 12.6 % (11.5-15.5); WBC 16.5 k/uL (3.8-10.6)
[2021-01-17 19:09] LABS: Partial Thromboplastin Time 24.7 sec (22.0-30.0)
[2021-01-17 19:20] LABS: ALT 35 U/L (4-49); AST 28 U/L (17-59); African American GFR (CKD) >90 (>60 ml/min/1.73 sqM); Albumin 4.2 g/dL (3.5-5.0); Alkaline Phosphatase 92 U/L (38-126); Anion Gap 9 mmol/L; Blood Urea Nitrogen 22 mg/dL (9-20); Calcium 9.8 mg/dL (8.4-10.2); Carbon Dioxide 26 mmol/L (22-30); Chloride 102 mmol/L (98-107); Creatine Kinase 110 U/L (55-170); Glucose 191 mg/dL (74-99); Magnesium 2.1 mg/dL (1.6-2.3); Non-African American GFR(CKD) >90 (>60 ml/min/1.73 sqM); Potassium 4.5 mmol/L (3.5-5.1); Sodium 137 mmol/L (137-145); Total Bilirubin 0.3 mg/dL (0.2-1.3); Total Protein 6.7 g/dL (6.3-8.2)
--- NOTE | 2021-01-17 19:33 | XR ---
EXAMINATION TYPE: XR chest 2V DATE OF EXAM: 01/17/2021 COMPARISON: 03/07/2020 HISTORY: Difficulty breathing TECHNIQUE: 2 views FINDINGS: Heart and mediastinum are normal. Lungs are clear of infiltrate. There are no hilar masses. Costophrenic angles are clear. There are chest leads. Bony thorax is intact. IMPRESSION: No active cardiopulmonary disease. Normal heart. No change.
[2021-01-17] MEDS: SODIUM CHLORIDE 0.9% 1,000 ML IV SCH (21:24)
[2021-01-17] MEDS: methylPREDNISolone SOD SUCCI 125 MG/2 ML VIAL IV SCH (23:43)
[2021-01-18] MEDS: SODIUM CHLORIDE 0.9% 1,000 ML IV SCH ×2 (04:00→11:15)
[2021-01-18 06:21] VITALS: BP 103/61; RESP 16
[2021-01-18] MEDS: methylPREDNISolone SOD SUCCI 125 MG/2 ML VIAL IV SCH ×2 (06:35→11:12)
[2021-01-18] MEDS: ALBUTEROL NEBULIZED 2.5 MG/3 ML INHALATION SCH ×2 (07:21→10:46)
[2021-01-18 10:59] VITALS: PULSE 78
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
--- NOTE | 2021-01-18 14:53 | P.DS ---
Providers Date of admission: 01/17/21 20:13 Attending physician: Jaime Cardoza MD Primary care physician: Stated None Hospital Course: Refer to my history of present illness for further details Patient Condition at Discharge: Fair Plan - Discharge Summary New Discharge Prescriptions: New Budesonide-Formot 160-4.5 Mcg [Symbicort 160-4.5 Mcg Inhaler] 2 puff INHALATION BID #1 inhaler Famotidine [Pepcid] 20 mg PO BID #30 tablet predniSONE 10 mg PO DAILY #30 tab Tiotropium [place] [Spiriva] 1 cap INHALATION DAILY #1 device Albuterol Inhaler [Ventolin Hfa Inhaler] 2 puff INHALATION RT-QID PRN #1 inhaler PRN Reason: Shortness Of Breath Or Wheezing Discharge Medication List Albuterol Inhaler [Ventolin Hfa Inhaler] 2 puff INHALATION RT-QID PRN #1 inhaler 01/18/21 [Rx] Budesonide-Formot 160-4.5 Mcg [Symbicort 160-4.5 Mcg Inhaler] 2 puff INHALATION BID #1 inhaler 01/18/21 [Rx] Famotidine [Pepcid] 20 mg PO BID #30 tablet 01/18/21 [Rx] Tiotropium [place] [Spiriva] 1 cap INHALATION DAILY #1 device 01/18/21 [Rx] predniSONE 10 mg PO DAILY #30 tab 01/18/21 [Rx] Follow up Appointment(s)/Referral(s): Jose Beatty MD [REFERRING] - 1 Week Patient Instructions/Handouts: COPD (Chronic Obstructive Pulmonary Disease) (ED) Discharge Disposition: HOME SELF-CARE
== END 2021-01-18 14:14 | disposition home or self-care (01) ==
LOC: EC 18:08 → INTOOBSV 20:13 → 4SSUR 20:13 → UNDODISIN 01-18 14:14
PROVIDERS: ADMIT Internal Medicine; ATTEND Internal Medicine
DX: J44.1 Chronic obstructive pulmonary disease with (acute) exacerbation (principal); F17.290 Nicotine dependence, other tobacco product, uncomplicated; Z59.0 Homelessness; Z79.51 Long term (current) use of inhaled steroids; F10.10 Alcohol abuse, uncomplicated; D72.829 Elevated white blood cell count, unspecified; E86.0 Dehydration; F41.9 Anxiety disorder, unspecified; Z79.899 Other long term (current) drug therapy; Z95.1 Presence of aortocoronary bypass graft; R61 Generalized hyperhidrosis
CPT/HCPCS: 99285; 96376 ×2; 96361; 96374; 36415; 94640 ×3; 93005; 83880; 80053; 82550; 83605; 83735; 84484; 85025; 85610; 85730; 71046; G0378 ×2; J2930 ×2

== ENCOUNTER 2021-01-22 19:20 | Observation (INO) | payer OTHER ==
[2021-01-22] MEDS ORDERED: DOXYCYCLINE 100 MG in SODIUM CHLORIDE 0.9% 100 ML IVPB ONE (19:50)
[2021-01-22] MEDS ORDERED: IPRATROPIUM-ALBUTEROL 3 ML NEB INHALATION STA (19:50)
[2021-01-22] MEDS ORDERED: methylPREDNISolone SOD SUCCI 125 MG/2 ML VIAL IV STA (19:50)
[2021-01-22] MEDS ORDERED: SODIUM CHLORIDE 0.9% 500 ML 500 ML IV ONE (19:53)
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
--- NOTE | 2021-01-22 20:10 | XR ---
EXAMINATION TYPE: XR chest 1V portable DATE OF EXAM: 01/22/2021 COMPARISON: 01/17/2021. HISTORY: Cough. TECHNIQUE: Single frontal view of the chest is obtained. FINDINGS: There is no focal air space opacity, pleural effusion, or pneumothorax seen. The cardiac silhouette size is within normal limits. The osseous structures are intact. IMPRESSION: No acute process.
[2021-01-22 20:13] LABS: Basophils # (A) 0.1 k/uL (0-0.2); Basophils % (A) 0 %; Eosinophils # (A) 0.3 k/uL (0-0.7); Eosinophils % (A) 1 %; HCT 48.4 % (39.0-53.0); HGB 16.4 gm/dL (13.0-17.5); Lymphocytes # (A) 3.3 k/uL (1.0-4.8); Lymphocytes % (A) 18 %; MCH 33.2 pg (25.0-35.0); MCV 97.7 fL (80.0-100.0); Monocytes # (A) 0.6 k/uL (0-1.0); Monocytes % (A) 3 %; Neutrophils # (A) 14.1 k/uL (1.3-7.7); Neutrophils % (A) 76 %; Platelet Count 219 k/uL (150-450); RBC 4.95 m/uL (4.30-5.90); RDW 12.9 % (11.5-15.5); WBC 18.4 k/uL (3.8-10.6)
[2021-01-22 20:26] LABS: ALT 37 U/L (4-49); AST 26 U/L (17-59); African American GFR (CKD) >90 (>60 ml/min/1.73 sqM); Albumin 4.1 g/dL (3.5-5.0); Alkaline Phosphatase 94 U/L (38-126); Anion Gap 7 mmol/L; Blood Urea Nitrogen 19 mg/dL (9-20); Calcium 9.7 mg/dL (8.4-10.2); Carbon Dioxide 27 mmol/L (22-30); Chloride 100 mmol/L (98-107); Glucose 184 mg/dL (74-99); Non-African American GFR(CKD) >90 (>60 ml/min/1.73 sqM); Potassium 4.2 mmol/L (3.5-5.1); Sodium 134 mmol/L (137-145); Total Bilirubin 0.2 mg/dL (0.2-1.3); Total Protein 6.5 g/dL (6.3-8.2)
[2021-01-22 20:45] LABS: VBG PH 7.48 (7.31-7.41)
[2021-01-22 21:07] LABS: INR 0.9 (<1.2); Prothrombin Time 10.2 sec (9.0-12.0)
[2021-01-22] MEDS ORDERED: ACETAMINOPHEN TAB 325 MG TAB PO PRN (22:06)
[2021-01-22] MEDS ORDERED: NALOXONE 0.4 MG/ML 1 ML VIAL IV PRN (22:06)
[2021-01-22] MEDS ORDERED: IPRATROPIUM-ALBUTEROL 3 ML NEB INHALATION PRN (22:07)
[2021-01-22] MEDS: SODIUM CHLORIDE 0.9% 1,000 ML IV SCH (22:25)
[2021-01-23] MEDS: methylPREDNISolone SOD SUCCI 125 MG/2 ML VIAL IV SCH ×2 (00:14→07:22)
[2021-01-23] MEDS: SODIUM CHLORIDE 0.9% 1,000 ML IV SCH (06:23)
[2021-01-23 06:25] LABS: Basophils % (A) 0 %; Eosinophils # (A) 0.1 k/uL (0-0.7); Eosinophils % (A) 0 %; HCT 49.6 % (39.0-53.0); HGB 16.5 gm/dL (13.0-17.5); Lymphocytes # (A) 0.8 k/uL (1.0-4.8); Lymphocytes % (A) 4 %; MCH 33.2 pg (25.0-35.0); MCHC 33.4 g/dL (31.0-37.0); MCV 99.4 fL (80.0-100.0); Mean Platelet Volume 8.2; Monocytes # (A) 0.3 k/uL (0-1.0); Monocytes % (A) 1 %; Neutrophils # (A) 20.1 k/uL (1.3-7.7); Neutrophils % (A) 94 %; Platelet Count 227 k/uL (150-450); RBC 4.99 m/uL (4.30-5.90); RDW 13.3 % (11.5-15.5); WBC 21.4 k/uL (3.8-10.6)
[2021-01-23 06:43] LABS: ALT 36 U/L (4-49); AST 25 U/L (17-59); African American GFR (CKD) >90 (>60 ml/min/1.73 sqM); Albumin 4.5 g/dL (3.5-5.0); Alkaline Phosphatase 110 U/L (38-126); Anion Gap 10 mmol/L; Blood Urea Nitrogen 22 mg/dL (9-20); Calcium 10.3 mg/dL (8.4-10.2); Carbon Dioxide 25 mmol/L (22-30); Chloride 102 mmol/L (98-107); Glucose 222 mg/dL (74-99); Non-African American GFR(CKD) >90 (>60 ml/min/1.73 sqM); Potassium 5.4 mmol/L (3.5-5.1); Sodium 137 mmol/L (137-145); Total Bilirubin 0.5 mg/dL (0.2-1.3)
[2021-01-23 07:22] VITALS: BP 134/67; TEMP 97.5
[2021-01-23 08:36] VITALS: RESP 18
[2021-01-23] MEDS ORDERED: predniSONE 20 MG TAB PO SCH (10:15)
[2021-01-23] MEDS ORDERED: PANTOPRAZOLE 40 MG/10 ML VIAL IVP SCH (10:15)
[2021-01-23 12:22] VITALS: PULSE 125
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
--- NOTE | 2021-01-23 12:44 | P.DS ---
Providers Date of admission: 01/22/21 22:07 Attending physician: Thad López Primary care physician: Stated None Hospital Course: Please refer to my HPI for further details Patient Condition at Discharge: Stable Plan - Discharge Summary Discharge Rx Participant: No New Discharge Prescriptions: New Famotidine [Pepcid] 20 mg PO BID #20 tablet Budesonide-Formot 160-4.5 Mcg [Symbicort 160-4.5 Mcg Inhaler] 2 puff INHALATION BID #1 inhaler Doxycycline Monohydrate [Monodox] 100 mg PO Q12HR #6 cap predniSONE 10 mg PO DAILY #30 tab Tiotropium [place] [Spiriva] 1 cap INHALATION DAILY #1 device Continue Nazario/Mag 1 tab PO TID PRN PRN Reason: CRAMPS Albuterol Inhaler [Ventolin Hfa Inhaler] 2 puff INHALATION RT-QID PRN #1 inha ler PRN Reason: Shortness Of Breath Or Wheezing traZODone HCL [Desyrel] 50 - 150 mg PO HS ondansetron HCL [Zofran] 8 mg PO Q6H PRN PRN Reason: Nausea Discharge Medication List Albuterol Inhaler [Ventolin Hfa Inhaler] 2 puff INHALATION RT-QID PRN #1 inhaler 01/18/21 [Rx] Nazario/Mag 1 tab PO TID PRN 01/22/21 [History] ondansetron HCL [Zofran] 8 mg PO Q6H PRN 01/22/21 [History] traZODone HCL [Desyrel] 50 - 150 mg PO HS 01/22/21 [History] Budesonide-Formot 160-4.5 Mcg [Symbicort 160-4.5 Mcg Inhaler] 2 puff INHALATION BID #1 inhaler 01/23/21 [Rx] Doxycycline Monohydrate [Monodox] 100 mg PO Q12HR #6 cap 01/23/21 [Rx] Famotidine [Pepcid] 20 mg PO BID #20 tablet 01/23/21 [Rx] Tiotropium [place] [Spiriva] 1 cap INHALATION DAILY #1 device 01/23/21 [Rx] predniSONE 10 mg PO DAILY #30 tab 01/23/21 [Rx] Follow up Appointment(s)/Referral(s): Layo Wong MD [STAFF PHYSICIAN] - 1 Week Saji Bueno MD [STAFF PHYSICIAN] - 1 Week Ambulatory/Diagnostic Orders: Basic Metabolic Panel [LAB.AMB] Time Frame: 3 Days, Location: None Selected Activity/Diet/Wound Care/Special Instructions: Low potassium diet Discharge Disposition: HOME SELF-CARE
== END 2021-01-23 13:03 | disposition home or self-care (01) ==
LOC: EC 19:20 → 6NMEDSUR 22:07
PROVIDERS: ADMIT Hospitalist; ATTEND Hospitalist
DX: J44.1 Chronic obstructive pulmonary disease with (acute) exacerbation (principal); J44.0 Chronic obstructive pulmonary disease with (acute) lower respiratory infection; J20.9 Acute bronchitis, unspecified; E87.1 Hypo-osmolality and hyponatremia; T38.0X5A Adverse effect of glucocorticoids and synthetic analogues, initial encounter; Z77.120 Contact with and (suspected) exposure to mold (toxic); Z20.822 Contact with and (suspected) exposure to COVID-19; R00.0 Tachycardia, unspecified; F12.90 Cannabis use, unspecified, uncomplicated; F41.9 Anxiety disorder, unspecified; F17.200 Nicotine dependence, unspecified, uncomplicated; F31.9 Bipolar disorder, unspecified; F39 Unspecified mood [affective] disorder; F60.9 Personality disorder, unspecified; Z79.899 Other long term (current) drug therapy; Z79.51 Long term (current) use of inhaled steroids; Z88.5 Allergy status to narcotic agent; Z88.0 Allergy status to penicillin; Z88.8 Allergy status to other drugs, medicaments and biological substances; Z91.011 Allergy to milk products; Z59.0 Homelessness; Z95.1 Presence of aortocoronary bypass graft; Z87.01 Personal history of pneumonia (recurrent); Z80.52 Family history of malignant neoplasm of bladder; Z80.42 Family history of malignant neoplasm of prostate
CPT/HCPCS: 99284; 96376; 96365; 96375; 36415; 94640 ×2; 83880; 80053 ×2; 82803; 83605; 83735; 84484; 85025 ×2; 85610; 85730; 87040; 87635; 71045; G0378 ×2; J2930 ×2; J7512; 93005

== ENCOUNTER 2021-01-24 08:51 | Emergency (ER) | payer OTHER ==
--- NOTE | 2021-01-24 09:38 | XR ---
EXAMINATION TYPE: XR chest 2V DATE OF EXAM: 01/24/2021 COMPARISON: 01/22/2021 and prior HISTORY: 40 years Male. STUDY INDICATION GIVEN: difficulty breathing . TECHNIQUE: PA and lateral chest radiographs FINDINGS AND IMPRESSION: Hyperinflated lungs similar to prior, could be on the basis of large aspiration or perhaps small airw ay disease. Clear lungs and pleural spaces. Normal cardiomediastinal silhouette. No acute osseous abnormality. No significant change since 01/22/2021.
[2021-01-24 09:45] LABS: Basophils # (A) 0.1 k/uL (0-0.2); Basophils % (A) 0 %; Eosinophils # (A) 0.2 k/uL (0-0.7); Eosinophils % (A) 1 %; HCT 47.8 % (39.0-53.0); HGB 16.3 gm/dL (13.0-17.5); Lymphocytes # (A) 1.9 k/uL (1.0-4.8); Lymphocytes % (A) 9 %; MCH 33.4 pg (25.0-35.0); MCHC 34.2 g/dL (31.0-37.0); MCV 97.7 fL (80.0-100.0); Mean Platelet Volume 8.6; Monocytes # (A) 0.8 k/uL (0-1.0); Monocytes % (A) 4 %; Neutrophils # (A) 16.7 k/uL (1.3-7.7); Neutrophils % (A) 85 %; Platelet Count 197 k/uL (150-450); RBC 4.89 m/uL (4.30-5.90); RDW 12.7 % (11.5-15.5); WBC 19.8 k/uL (3.8-10.6)
[2021-01-24 10:00] LABS: ALT 36 U/L (4-49); AST 24 U/L (17-59); African American GFR (CKD) >90 (>60 ml/min/1.73 sqM); Albumin 4.5 g/dL (3.5-5.0); Alkaline Phosphatase 97 U/L (38-126); Anion Gap 10 mmol/L; Blood Urea Nitrogen 20 mg/dL (9-20); Calcium 9.4 mg/dL (8.4-10.2); Carbon Dioxide 26 mmol/L (22-30); Chloride 101 mmol/L (98-107); Glucose 137 mg/dL (74-99); Non-African American GFR(CKD) >90 (>60 ml/min/1.73 sqM); Potassium 4.3 mmol/L (3.5-5.1); Sodium 137 mmol/L (137-145); Total Bilirubin 0.3 mg/dL (0.2-1.3); Total Protein 6.9 g/dL (6.3-8.2)
[2021-01-24 10:03] LABS: INR 0.9 (<1.2); Partial Thromboplastin Time 23.1 sec (22.0-30.0); Prothrombin Time 10.1 sec (9.0-12.0)
[2021-01-24] MEDS ORDERED: IPRATROPIUM-ALBUTEROL 3 ML NEB INHALATION STA (10:57)
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
[2021-01-24 11:12] VITALS: BP 128/76; TEMP 98.3
[2021-01-24 11:26] VITALS: RESP 22
[2021-01-24 11:34] VITALS: PULSE 99
[2021-01-24] MEDS ORDERED: predniSONE 20 MG TAB PO STA (11:42)
[2021-01-24] MEDS ORDERED: FAMOTIDINE 20 MG TAB PO STA (11:43)
[2021-01-24] MEDS ORDERED: DOXYCYCLINE 100 MG CAP PO STA (11:43)
== END 2021-01-24 12:10 | disposition home or self-care (01) ==
LOC: EC 08:51
DX: J44.1 Chronic obstructive pulmonary disease with (acute) exacerbation (principal); F41.9 Anxiety disorder, unspecified; F17.200 Nicotine dependence, unspecified, uncomplicated; F12.90 Cannabis use, unspecified, uncomplicated; Z88.0 Allergy status to penicillin; Z88.1 Allergy status to other antibiotic agents; Z91.011 Allergy to milk products; Z95.1 Presence of aortocoronary bypass graft; Z20.822 Contact with and (suspected) exposure to COVID-19
CPT/HCPCS: 99285; 36415; 94640; 93005; 83880; 80053; 83605; 84484; 85025; 85610; 85730; 87635; 71046; J7512

== ENCOUNTER 2021-01-25 20:06 | Observation (INO) | payer OTHER ==
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
[2021-01-25] MEDS ORDERED: predniSONE 20 MG TAB PO STA (21:23)
[2021-01-25] MEDS ORDERED: ALBUTEROL NEBULIZED 2.5 MG/3 ML INHALATION STA (21:23)
[2021-01-25 21:40] LABS: Basophils # (A) 0.1 k/uL (0-0.2); Basophils % (A) 0 %; Eosinophils % (A) 0 %; HGB 16.3 gm/dL (13.0-17.5); Hypochromasia Slight; Lymphocytes # (A) 1.4 k/uL (1.0-4.8); Lymphocytes % (A) 13 %; MCH 33.5 pg (25.0-35.0); MCHC 33.4 g/dL (31.0-37.0); MCV 100.3 fL (80.0-100.0); Macrocytosis Slight; Mean Platelet Volume 9.1; Monocytes # (A) 0.9 k/uL (0-1.0); Monocytes % (A) 8 %; Neutrophils # (A) 8.9 k/uL (1.3-7.7); Neutrophils % (A) 78 %; Platelet Count 190 k/uL (150-450); RBC 4.88 m/uL (4.30-5.90); WBC 11.4 k/uL (3.8-10.6)
[2021-01-25 21:49] LABS: ALT 35 U/L (4-49); AST 24 U/L (17-59); African American GFR (CKD) >90 (>60 ml/min/1.73 sqM); Albumin 4.1 g/dL (3.5-5.0); Alkaline Phosphatase 98 U/L (38-126); Anion Gap 9 mmol/L; Blood Urea Nitrogen 16 mg/dL (9-20); Calcium 9.2 mg/dL (8.4-10.2); Carbon Dioxide 28 mmol/L (22-30); Chloride 98 mmol/L (98-107); Glucose 256 mg/dL (74-99); Non-African American GFR(CKD) >90 (>60 ml/min/1.73 sqM); Potassium 4.2 mmol/L (3.5-5.1); Sodium 135 mmol/L (137-145); Total Bilirubin 0.4 mg/dL (0.2-1.3); Total Protein 6.4 g/dL (6.3-8.2)
--- NOTE | 2021-01-25 21:50 | XR ---
EXAMINATION TYPE: XR chest 2V DATE OF EXAM: 01/25/2021 COMPARISON: 01/24/2021 HISTORY: Short of breath TECHNIQUE: 2 views FINDINGS: There is pulmonary hyperinflation and flattening of the diaphragm. Heart size is normal. Th ere is no heart failure. There are no hilar masses. Mediastinum is within normal limits. The bony tho rax is intact. IMPRESSION: There is evidence for some COPD. No change compared to yesterday.
[2021-01-25 21:53] LABS: INR 0.9 (<1.2); Partial Thromboplastin Time 23.5 sec (22.0-30.0); Prothrombin Time 10.2 sec (9.0-12.0)
[2021-01-25] MEDS ORDERED: SODIUM CHLORIDE 0.9% 1,000 ML IV ONE ×2 (22:08→22:09)
[2021-01-26] MEDS: ALBUTEROL NEBULIZED 2.5 MG/3 ML INHALATION SCH ×4 (07:39→20:42)
[2021-01-26] MEDS ORDERED: BUDESONIDE 0.5 MG/2 ML NEBU INHALATION SCH (08:00)
[2021-01-26] MEDS ORDERED: predniSONE 20 MG TAB PO SCH (09:00)
[2021-01-26] MEDS ORDERED: GUAIFENESIN PO PRN (09:07)
[2021-01-26] MEDS ORDERED: DEXTROMETHORPHAN PO PRN (09:07)
[2021-01-26] MEDS ORDERED: ALBUTEROL NEBULIZED 2.5 MG/3 ML INHALATION PRN (09:07)
[2021-01-26] MEDS ORDERED: methylPREDNISolone SOD SUCCI 125 MG/2 ML VIAL IV STA (09:51)
[2021-01-26] MEDS: AZITHROMYCIN 500 MG TAB PO SCH (10:02)
[2021-01-26] MEDS: HEPARIN SODIUM,PORCINE/PF 5,000 UNIT/0.5 ML SYRINGE SQ SCH ×2 (10:02→19:41)
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
[2021-01-26] MEDS: methylPREDNISolone SOD SUCCI 125 MG/2 ML VIAL IV SCH ×2 (15:10→16:48)
[2021-01-26] MEDS: FAMOTIDINE 20 MG TAB PO SCH ×2 (19:41→20:14)
[2021-01-26] MEDS: SYMBICORT 160-4.5 MCG INHALER INHALATION SCH (20:42)
[2021-01-26] MEDS ORDERED: predniSONE 20 MG TAB PO STA (22:08)
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
[2021-01-26] MEDS ORDERED: predniSONE 10 MG TAB PO STA (22:23)
[2021-01-27] MEDS: methylPREDNISolone SOD SUCCI 125 MG/2 ML VIAL IV SCH ×2 (01:51→05:49)
[2021-01-27] MEDS: ALBUTEROL NEBULIZED 2.5 MG/3 ML INHALATION SCH ×2 (07:35→11:47)
[2021-01-27] MEDS: SYMBICORT 160-4.5 MCG INHALER INHALATION SCH (07:36)
[2021-01-27] MEDS ORDERED: IBUPROFEN 200 MG TAB PO STA (08:42)
[2021-01-27] MEDS: HEPARIN SODIUM,PORCINE/PF 5,000 UNIT/0.5 ML SYRINGE SQ SCH (08:49)
[2021-01-27] MEDS: FAMOTIDINE 20 MG TAB PO SCH (08:50)
[2021-01-27 08:51] VITALS: BP 120/72; PULSE 98; RESP 20; TEMP 98
[2021-01-27] MEDS: AZITHROMYCIN 500 MG TAB PO SCH (08:56)
[2021-01-27] MEDS ORDERED: predniSONE 20 MG TAB PO SCH (09:00)
[2021-01-27] MEDS ORDERED: HALOPERIDOL LACTATE 5 MG/ML 1 ML VIAL IM STA (11:16)
--- NOTE | 2021-01-27 12:23 | P.PN ---
Subjective Progress Note Date: 01/27/21 Principal diagnosis: COPD exacerbation This is a 40-year-old male patient with a history of chronic and ongoing tobacco dependence, marijuana use, alcoholism, bipolar disorder, congenital heart defect with heart and lung surgery when he was 14 years old, COPD and was discharged from here on 01/23/2021 to [facility] where he was transferred here for COPD exacerbation, bronchitis. He is otherwise homeless. He was discharged on Symbicort, albuterol, prednisone taper and doxycycline. He presented back to the emergency room for the fourth time this month with complaints of increasing shortness of breath, cough or congestion. Chest x-ray reveals evidence of COPD and previous surgical changes but no acute pulmonary process. He is seen today in consultation in the emergency room. He is currently sitting up on the stretcher. Awake and alert in no acute distress. He has a dry nonproductive cough. Being somewhat sarcastic and evasive with his answers. He states his breathing issues stem from the black mold that his throughout the [facility]. He does continue to smoke but states he is down to half a pack a day. White count 11.4. Hemoglobin 16.3. D-dimer less than 0.17. Sodium 135. Potassium 4.2. Creatinine 0.65. Glucose 256. Troponin negative 2. ProBNP 193. Serum alcohol less than 10. Davey virus not detected. He's been initiated on Symbicort, albuterol, IV Solu-Medrol. The patient is seen today 01/27/2021 in follow-up on the regular medical floor. He is breathing a bit easier today compared to yesterday. Less bronchospastic and wheezy. He is maintaining O2 saturation in the mid 90s on room air. He's been afebrile. Hemodynamically stable. Sputum culture pending. He is continued on Symbicort, albuterol, IV Solu-Medrol. Heparin for DVT prophylaxis. Empiric antibiotics in the form of Azithromycin. He was a bit more calm and cooperative this morning however and Mr. Plummer was called on him and he is quite agitated. Psychiatry is in the room now. Security is at the door. Objective - Vital Signs Vital signs: Vital Signs Temp 98.0 F 01/27/21 07:00 Pulse 98 01/27/21 08:00 Resp 20 01/27/21 08:00 BP 120/72 01/27/21 07:00 Pulse Ox 95 01/27/21 07:00 Intake & Output 01/26/21 01/27/21 01/27/21 18:59 06:59 18:59 Intake Total 500 Balance 500 Weight 79.379 kg Intake: Oral 500 Other: Voiding Method Toilet Toilet # Voids 3 - Exam GENERAL EXAM: Alert, agitated, 40-year-old male patient, on room air, comfortable in no apparent distress. HEAD: Normocephalic. EYES: Normal reaction of pupils, equal size. NOSE: Clear with pink turbinates. THROAT: No erythema or exudates. NECK: No masses, no JVD. CHEST: No chest wall deformity. LUNGS: Equal air entry with bilateral end expiratory wheeze, diminished. CVS: S1 and S2 normal with no audible murmur, regular rhythm. ABDOMEN: No hepatosplenomegaly, normal bowel sounds, no guarding or rigidity. SPINE: No scoliosis or deformity SKIN: No rashes CENTRAL NERVOUS SYSTEM: No focal deficits, tone is normal in all 4 extremities. EXTREMITIES: There is no peripheral edema. No clubbing, no cyanosis. Peripheral pulses are intact. - Labs CBC & Chem 7: 01/25/21 21:30 01/25/21 21:30 Labs: Microbiology - Last 24 Hours (Table) 01/26/21 12:00 Gram Stain - Preliminary Sputum Sputum Culture - Preliminary Assessment and Plan Assessment: 1 Acute exacerbation of chronic obstructive pulmonary disease 2 Chronic and ongoing tobacco dependence 3 Bipolar disorder 4 Alcoholism, currently seeking treatment at [facility] 5 History of congenital defect with open heart surgery at age 14 6 History of right rib reconstruction surgery suspect secondary to above 7 Anxiety 8 Marijuana use Plan: The patient was seen and evaluated by Dr. Gonsalez We will discontinue the IV Solu-Medrol, initiate prednisone Continue albuterol, Symbicort Continue empiric antibiotics in the form of azithromycin Improve from the pulmonary standpoint We will see as needed I, the cosigning physician, performed a history & physical examination of the patient. Lungs sounds with faint bilateral end expiratory wheeze. Maintaining good O2 saturations in the 90s on room air. I discussed the assessment and plan of care with my nurse practitioner, Tran Renteria. I attest to the above note as dictated by her.
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
== END 2021-01-27 12:57 | disposition left against medical advice (07) ==
LOC: EC 20:06 → 6NMEDSUR 23:59
PROVIDERS: ADMIT Hospitalist; ATTEND Hospitalist
DX: J44.1 Chronic obstructive pulmonary disease with (acute) exacerbation (principal); Z79.51 Long term (current) use of inhaled steroids; Z79.52 Long term (current) use of systemic steroids; Z79.899 Other long term (current) drug therapy; Z88.0 Allergy status to penicillin; Z88.8 Allergy status to other drugs, medicaments and biological substances; Z91.011 Allergy to milk products; Z87.01 Personal history of pneumonia (recurrent); Z87.74 Personal history of (corrected) congenital malformations of heart and circulatory system; Z91.19 Patient's noncompliance with other medical treatment and regimen; R00.2 Palpitations; Z95.1 Presence of aortocoronary bypass graft; Z89.029 Acquired absence of unspecified finger(s); Z98.890 Other specified postprocedural states; F41.9 Anxiety disorder, unspecified; Z80.42 Family history of malignant neoplasm of prostate; Z80.52 Family history of malignant neoplasm of bladder; F17.210 Nicotine dependence, cigarettes, uncomplicated; Z20.822 Contact with and (suspected) exposure to COVID-19; I25.10 Atherosclerotic heart disease of native coronary artery without angina pectoris; Z59.0 Homelessness; F31.9 Bipolar disorder, unspecified; Z53.29 Procedure and treatment not carried out because of patient's decision for other reasons; R45.1 Restlessness and agitation; F12.90 Cannabis use, unspecified, uncomplicated; F60.0 Paranoid personality disorder
CPT/HCPCS: 96376; 96372 ×2; 96361; 96365; 96375; 99285; 36415; 94640 ×5; 94760; 93005; 85379; 83880; 80053; 83605 ×2; 84484 ×2; 85025; 85610; 85730; 87070; 87205; 87635; 71046; G0378 ×2; G0480; J1630; J2930; J0696; J7512 ×3; J1644; 80320

== ENCOUNTER 2021-07-14 00:11 | Inpatient (IN) | payer MEDICAID ==
[2021-07-14] MEDS ORDERED: LORazepam 1 MG TAB PO PRN (00:47)
[2021-07-14] MEDS ORDERED: haloperidoL 5 MG TAB PO PRN (00:47)
[2021-07-14] MEDS ORDERED: LORazepam 2 MG/ML INJ IM PRN (00:47)
[2021-07-14] MEDS ORDERED: HALOPERIDOL LACTATE 5 MG/ML 1 ML VIAL IM PRN (00:47)
[2021-07-14] MEDS ORDERED: MAGNESIUM HYDROXIDE 2,400 MG/10 ML CUP PO PRN (01:05)
[2021-07-14] MEDS ORDERED: MAG HYDROX/AL HYDROX/SIMETH 30 ML CUP PO PRN (01:05)
[2021-07-14 01:32] VITALS: RESP 16
[2021-07-14] MEDS ORDERED: ALBUTEROL HFA INHALER INHALATION PRN (08:00)
[2021-07-14] MEDS ORDERED: SYMBICORT 160-4.5 MCG INHALER INHALATION SCH (08:00)
[2021-07-14] MEDS: NICOTINE 14MG/24HR PATCH TRANSDERM SCH ×2 (08:50→09:52)
[2021-07-14] MEDS ORDERED: hydrOXYzine HCL 50 MG/ML 1 ML VIAL IM PRN (11:19)
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
[2021-07-14] MEDS: PALIPERIDONE 3 MG TAB.ER.24 PO SCH ×3 (21:16→21:42)
[2021-07-14] MEDS: hydrOXYzine pamoate 25 MG CAP PO PRN (23:11)
[2021-07-15] MEDS: NICOTINE 14MG/24HR PATCH TRANSDERM SCH (08:31)
--- NOTE | 2021-07-15 12:05 | P.PN ---
Progress Note - Text Progress Note Date: 07/15/21 Interval History: Patient was seen attending group and was directable and agreeable to speak with sba underwriter in the office. The patient reports that he is wishing to go home. He was noted by staff to be paranoid yesterday in regards to his release of information that he signed. It did take him some redirection. This morning, the patient is cooperative and directable. He is currently not reporting any suicidal or homicidal ideation, intention, and/or plan. He is not reporting any auditory or visual hallucinations. He denies any paranoia or other delusions. The patient has been adherent with his medication is not endorsing any significant side effects at this time. It is noted that the patient mentions a staff that he felt like the medication was affecting his breathing however he was informed that this provider that his vitals are stable and he appears to be breathing just fine most to contact this provider. Mental Status Exam: General Appearance: Patient appears to be stated age is alert, directable, and cooperative. Behavior: Patient is calmly seated without any agitated behavior. Speech: Patient's speech is fluent and nonpressured. Mood/Affect: Mood is improving mildly, affect is congruent and constricted. Suicidality/Homicidality: Patient denies having any suicidal or homicidal ideation intent or plan. Perceptions: Patient denies any visual hallucinations and denies any auditory hallucinations Though content/process: There is no evidence of any delusional thought content and thought process is linear and goal-directed. Mild paranoia is evident. Memory and concentration: AOX3, grossly intact for the purposes of this session Judgment and insight: Improving mildly Vital Signs Temp 97.8 F 07/15/21 09:00 Pulse 88 07/15/21 09:00 Resp 16 07/15/21 09:00 BP 126/76 07/15/21 09:00 Pulse Ox 96 07/15/21 09:00 Intake & Output 07/14/21 07/15/21 07/15/21 18:59 06:59 18:59 Weight 77.564 kg Laboratory Results - Last 24 Hours 07/15/21 10:08 TSH 1.050 Assessment Delusional disorder versus schizophrenia Cannabis use disorder Plan: -Patient continues to meet criteria for inpatient psychiatric admission for symptom stabilization and safety. Patient has signed adult voluntary form and medication consent and was placed in patient's chart. -Medications: Increase Invega to 6 mg by mouth at bedtime for mood stabilization/psychosis -When necessary Vistaril and Haldol for agitation/aggression. -NRT - nicotine patch -SW on board for discharge planning. Encouraged the patient to participate in milieu.
[2021-07-15] MEDS: hydrOXYzine pamoate 25 MG CAP PO PRN (19:38)
[2021-07-15] MEDS ORDERED: PALIPERIDONE 6 MG TAB.ER.24 PO SCH (21:00)
[2021-07-15] MEDS: ACETAMINOPHEN TAB 325 MG TAB PO PRN (23:34)
[2021-07-16 08:33] VITALS: BP 129/81; PULSE 77; TEMP 97.3
[2021-07-16] MEDS: NICOTINE 14MG/24HR PATCH TRANSDERM SCH (08:33)
[2021-07-16] MEDS: ACETAMINOPHEN TAB 325 MG TAB PO PRN (08:34)
--- NOTE | 2021-07-16 13:32 | P.DS ---
Providers Date of admission: 07/14/21 00:44 Expected date of discharge: 07/16/21 Attending physician: Drew Echeverria MD Consults: 07/14/21 01:05 Consult Physician Routine Consulting Provider: Thad López Consult Reason/Comments: For H & P for Medical Follow Up Do you want consulting provider notified?: Yes, Notify in am Primary care physician: Stated None - Discharge Diagnosis(es) (1) Delusional disorder Status: Acute Priority: High (2) Cannabis use disorder, mild, abuse Status: Acute Priority: Medium Hospital Course: Admission HPI: Patient is a single, unemployed, 41-year-old male with significant history of delusional disorder and cannabis abuse presented to the hospital with psychotic symptoms. Patient presented to the hospital under petition and clinical certificate from [facility] for paranoia and delusional statements. As per petition and certificate, the patient believes that his roommates were out to get him. He believes that people have been trying to mess with him. He also reported that his phone was hacked, that there were killers and [address], and that he does not feel safe. He also reported that he has not been sleeping. On evaluation on the psychiatric unit, the patient reports that he is willing to do everything in order to be discharged as soon as possible. He is willing to take antipsychotic medications. The patient maintains that his roommates have been trying to mess with him and states that they "595" him. When asked to define what "595" is, the patient reports that is when someone messes with you "5% of the time but is normal 95% of the time. Therefore when you're looking at 95% of the time, he do not expect the 5% to happen." He expresses that the roommates have constantly been trying to mess with him and have been moving objects in his home without him knowing. In regards to other psychotic symptoms, the patient is denying any auditory or visual hallucinations. He reports no congregational preoccupation, thought insertion, thought projection, or ideas of reference. In regards to mood symptoms, the patient is not endorsing any significant symptoms of depression at this time. He denies any suicidal or homicidal ideation, intention, and/or plan. Reports no previous suicide attempts. The patient does admit that he has been sleeping poorly over the last few days. He reports he has been sleeping approximately 3-6 hours per night. In regards to substance use, the patient admits to cannabis use. He reports that he last used a few weeks ago however states that he does not use all. He reports that he has been quitting tobacco use. He denies any alcohol or illicit drug use. Patient states that he has been previously diagnosed with psychosis but does not believe he has this. The patient reports that he has gone different psychiatric medications however is unable to recall most of their names except for Vistaril. Review of his outpatient medical records revealed that the patient was on a regimen of Zyprexa, Abilify, and Risperdal. He is also been on long-acting injectables of Risperdal and Abilify in the past. As per chart review, the patient was discharged on a regimen of Haldol 10 mg at bedtime in February 2020. He has had 3 prior psychiatric hospitalizations. The patient is currently open with [facility]. Patient denies any history of suicide attempts in the past. Hospital course: Upon admission to the unit patient was initially endorsing significant paranoia and displayed elevated psychomotor activity. Patient was however directable and agreeable to commence treatment. Patient got along well with other patients on the unit and followed unit protocol. Patient was compliant with the medications and denied any side effects throughout hospital course. Patient was started on Invega. The patient was agreeable to sign himself in voluntarily to the psychiatric unit and take medications. Over the course of the hospitalization, the patient's Invega was gradually titrated to 9 milligrams daily. The patient tolerated the medications well. He had occasional episodes of irritability and paranoia however did not display any overt psychotic symptoms and appears that his paranoia seems likely related to his previous diagnoses of delusional disorder and of possible paranoid personality disorder. The patient attended both individual and group therapies. Patient was also seen by the medical team for history and physical examination. On the day of discharge, the patient reportedsuicidal or homicidal ideation, intention, and/or plan. He denied any access to firearms or weapons. The patient reported no auditory or visual hallucinations. He reports no delusions but appears to be distrusting at baseline however states that he is not going to act on any of his paranoia and was quite future oriented and inquiring of this provider how to cope with his suspicions of others. The patient was counseled on his medications and need for regular compliance and was encouraged to follow-up with his outpatient appointments for mental health for primary care. Furthermore, the patient does have a significant history of substance abuse however was counseled on abstaining from all substances including alcohol and marijuana. Prior to discharge, a meeting will be arranged by social studies department chair to answer any questions and ensure safety. Mental status exam: General Appearance: Patient appears to be stated age is alert, pleasant, and cooperative. Patient is in no acute distress and has fair hygiene and grooming Behavior: Patient is calmly seated without any agitated behavior. Speech: Patient's speech is fluent and nonpressured. Mood/Affect: Patient reports their mood is "feeling good to go", affect is congruent and euthymic to bright. Suicidality/Homicidality: Patient denies having any suicidal or homicidal ideation intent or plan. Perceptions: Patient denies any auditory or visual hallucinations. Though content/process: There is no evidence of any delusional thought content and thought process is linear and goal-directed. Patient is future oriented. Memory and concentration: AOX3, grossly intact for the purposes of this session. Can spell "WORLD" backwards correctly. Judgment and insight: Improved with guarded prognosis Vital Signs Temp 97.3 F L 07/16/21 08:32 Pulse 77 07/16/21 08:32 Resp 16 07/16/21 08:32 BP 129/81 07/16/21 08:32 Pulse Ox 96 07/16/21 08:32 Impression: Delusional disorder Cannabis use disorder Rule out paranoid personality disorder Plan: -Continue with discharge today as patient has improved and stabilized psychiatrically and is not currently an imminent threat to himself and/or others. Patient will remain at chronically elevated risk for harm to self and/or others due to his baseline paranoia. -Continue medications: Invega 9 mg by mouth daily for mood stabilization/psychosis -Patient was counseled on the need for medication compliance and appropriate follow-up at mental health and also primary care for medical issues. Patient verbalized understanding and agreed. -Social work to arrange for and conduct family meeting to ensure safety upon discharge and answer any questions/concerns. Social work also to arrange for patients follow [facility] along with follow up with primary care provider. -Patient counseled on abstaining from recreational drugs and marijuana and alcohol. Was informed/educated on the adverse effects on their physical and mental health. Patient verbally agreed and understood. -Patient was instructed to return to the hospital or seek immediate medical care if their psychiatric or medical symptoms do worsen or reoccur. -Psychoeducation and supportive therapy provided to patient. Risks and benefits of pharmacological treatment versus the risks and benefits of nontreatment weight and discussed. Informed consent discussion held. Common side effects of psychotropics discussed such as, but not limited to headache, GI disturbance, sexual dysfunction, movement disorders, sedation, and orthostatic hypotension. Life threatening and blackbox warnings of prescribed medications also discussed. Potential risks of operating a vehicle or heavy machinery discussed with patient at length. Advised on importance of compliance and a reliable and responsible manner. Patient advised to review FDA consumer labeling of all medications prior to taking. Patient verbalized understanding of potential risks, and agrees with current treatment plan. Patient advised to medically contact physician/emergency personnel if any acute changes in condition occur. Allergies Allergy/AdvReac Type Severity Reaction Status Date / Time amoxicillin Allergy Unknown Verified 07/14/21 01:15 atropine Allergy Unknown Verified 07/14/21 01:15 clonidine Allergy Unknown Verified 07/14/21 01:15 Penicillins Allergy Unknown Verified 07/14/21 01:[address] Glu mg/dL 164 07/15/21 10:08 Hemoglobin A1c 7.3 % (0.0-6.0) H 07/15/21 10:08 TSH 1.050 mIU/L (0.465-4.680) 07/15/21 10:08 Patient Condition at Discharge: Stable Plan - Discharge Summary Discharge Rx Participant: No New Discharge Prescriptions: New Nicotine 14Mg/24Hr Patch [Habitrol] 1 patch TRANSDERM DAILY 30 Days patch Paliperidone [Invega] 9 mg PO DAILY 30 Days tab Continue Albuterol Sulfate [Proair Hfa] 2 puff INHALATION RT-QID PRN PRN Reason: Shortness Of Breath Famotidine [Pepcid] 20 mg PO BID #30 tablet Tiotropium Marlow [Spiriva] 1 cap INHALATION RT-DAILY Budesonide-Formot 160-4.5 Mcg [Symbicort 160-4.5 Mcg Inhaler] 2 puff INHALATION RT-BID Discontinued predniSONE See Taper PO DAILY hydrOXYzine pamoate [Vistaril] 50 mg PO TID@0900,1700,2100 Guaifenesin Dm 400mg-20mg 1 tab PO Q4H PRN PRN Reason: Congestion Discharge Medication List Famotidine [Pepcid] 20 mg PO BID #30 tablet 01/24/21 [Rx] Albuterol Sulfate [Proair Hfa] 2 puff INHALATION RT-QID PRN 01/25/21 [History] Budesonide-Formot 160-4.5 Mcg [Symbicort 160-4.5 Mcg Inhaler] 2 puff INHALATION RT-BID 01/25/21 [History] Tiotropium Marlow [Spiriva] 1 cap INHALATION RT-DAILY 01/25/21 [History] Nicotine 14Mg/24Hr Patch [Habitrol] 1 patch TRANSDERM DAILY 30 Days patch 07/16/21 [Rx] Paliperidone [Invega] 9 mg PO DAILY 30 Days tab 07/16/21 [Rx] Follow up Appointment(s)/Referral(s): [facility] - 07/30/21 10:30 am (Elif Aparicio) [facility] [NON-STAFF] - 1 Week Patient Instructions/Handouts: How to Stop Smoking (DC), Mood Disorders (DC) Activity/Diet/Wound Care/Special Instructions: Activity and diet as tolerated. Avoid the use of street drugs and alcohol. Take all medications as prescribed. When you are in need of refills on your medications please contact your medical provider and/or outpatient psychiatrist to have this done. Please go to scheduled outpatient appointment for aftercare treatment. If symptoms return or become worse, call the crisis line at and/or go to the nearest emergency room for evaluation Discharge Disposition: HOME SELF-CARE
== END 2021-07-16 11:30 | disposition home or self-care (01) | DRG 885 ==
LOC: 3MHU 00:44
PROVIDERS: ADMIT Psychiatry & Neurology Psychiatry; ATTEND Psychiatry & Neurology Psychiatry
DX: F20.9 Schizophrenia, unspecified (principal); F31.9 Bipolar disorder, unspecified; F12.10 Cannabis abuse, uncomplicated; F17.210 Nicotine dependence, cigarettes, uncomplicated; F41.9 Anxiety disorder, unspecified; F60.9 Personality disorder, unspecified; J44.9 Chronic obstructive pulmonary disease, unspecified; Z79.51 Long term (current) use of inhaled steroids; Z95.1 Presence of aortocoronary bypass graft; Z88.1 Allergy status to other antibiotic agents; Z88.0 Allergy status to penicillin; Z88.8 Allergy status to other drugs, medicaments and biological substances; Z87.01 Personal history of pneumonia (recurrent)
CPT/HCPCS: 83036; 84443